=== PATIENT | female | born 1935 | race African-American/Black ===

== ENCOUNTER 2018-07-30 16:53 | Inpatient (IN) ==
--- NOTE | 2018-07-30 17:53 | Emergency Department Note ---
Disposition Clinical Impression: Liver mass, Hyponatremia, Hypokalemia Pneumonia Qualifiers: Pneumonia type: due to unspecified organism Laterality: unspecified laterality Lung location: unspecified part of lung Qualified Code(s): J18.9 - Pneumonia, unspecified organism UTI (urinary tract infection) Qualifiers: Urinary tract infection type: acute cystitis Hematuria presence: without hematuria Qualified Code(s): N30.00 - Acute cystitis without hematuria Disposition: Admitted As Inpatient Condition: Fair Time of Disposition: 20:35 Abdominal Pain HPI - General Chief Complaint: ED Abdominal Pain Stated Complaint: abd pain Time Seen by Provider: 07/30/18 17:06 Source: patient Mode of arrival: wheelchair Limitations: no limitations Nursing Notes Reviewed: Yes Vital Signs Reviewed: Yes - History of Present Illness HPI Narrative: Patient is an 82-year-old female presenting with abdominal pain. Patient states that the past few months she has been having abdominal pain with associated nausea and vomiting with intermittent diarrhea episodes. No hematochezia, hematemesis or melena. She has had chills without fever. She describes the abdominal pain to be in the left lower quadrant, with cramping sensation. No urinary symptoms. No exacerbating or alleviating factors. Patient was seen at her primary care provider's office earlier today, he was concerned and that they felt a mass in the abdomen, they then CT scheduled for later this month, however they became concerned as she continued to have diarrhea and felt as though she needed to be seen today. Pain Scale: 7 - Related Data Allergies Allergy/AdvReac Type Severity Reaction Status Date / Time No Known Allergies Allergy Verified 07/30/18 21:17 All systems ED: reviewed and negative except as stated. Review of Systems: As Per HPI Constitutional: Reports: chills. Denies: fever ENT ED: Denies: congestion Cardiovascular: Denies: chest pain, palpitations Respiratory: Denies: cough, dyspnea, wheezes Gastrointestinal: Reports: abdominal pain, nausea, vomiting, diarrhea. Denies: hematemesis, melena, hematochezia Genitourinary: Denies: urgency, dysuria, frequency Musculoskeletal: Denies: back pain, neck pain Integumentary: Denies: rash Neurological: Denies: headache, weakness, numbness, confusion Endocrine: Reports: fatigue Abdominal Pain PMH - Past Medical History Medical history: Reports: diabetes, hyperlipidemia, hypertension Female Surgical History: Reports: cholecystectomy, hysterectomy Psychiatric history: Reports: no psych history - Social History Smoking status: Never smoker Alcohol use: Reports: none Drug use: Reports: none Physical Exam - General Limitations: no limitations General appearance: alert, in no apparent distress - Head Head exam: atraumatic, normocephalic, normal inspection - Eye Eye exam: Present: normal appearance, PERRL, EOMI - ENT ENT exam: normal exam, normal oropharynx, mucous membranes dry - Neck Neck exam: Present: normal inspection, full ROM, trachea midline - Chest Chest inspection: Present: normal inspection, symmetric chest wall rise - Respiratory Respiratory exam: Present: other (Decreased breath sounds throughout). Absent: respiratory distress, wheezes - Cardiovascular Cardiovascular exam: Present: normal rhythm, tachycardia - Abdominal Exam Abdominal exam: Present: soft, tenderness (Tenderness throughout the left lower quadrant, with some distention and felt). Absent: guarding, rebound, rigidity - Extremities Exam Extremities exam: Present: normal inspection, full ROM. Absent: tenderness, pedal edema - Neurological Exam Neurological exam: Present: alert, oriented X3 - Psychiatric Psychiatric exam: Present: normal affect, normal mood - Skin Skin exam: Present: warm, dry, intact, normal color Course Vital Signs Temperature 97.7 F 07/30/18 16:57 Pulse Rate 118 07/30/18 16:57 Respiratory Rate 16 07/30/18 16:57 Blood Pressure 119/77 07/30/18 16:57 O2 Sat by Pulse Oximetry 95 07/30/18 16:57 Temperature 97.7 F 07/30/18 16:57 Pulse Rate 96 07/30/18 20:01 Respiratory Rate 18 07/30/18 21:51 Blood Pressure 147/76 07/30/18 21:51 O2 Sat by Pulse Oximetry 98 07/30/18 20:01 Oxygen Delivery Oxygen Delivery Room Air Abdominal Pain - MDM Narrative Medical decision making narrative: Patient is an 82-year-old female presenting with abdominal pain. This is been ongoing for the past 2 months with vomiting and diarrhea. Patient was seen by primary care provider earlier today with concern for abdominal mass, was sent to the ER for further evaluation. On arrival, patient is in no acute distress, she is alert and oriented 3, decreased breath sounds throughout with tenderness to the left lower quadrant. Patient is cachectic and thin in general appearance. CBC reveals leukocytosis at 16 with hemoglobin of 10.4, with a left shift of 14, patient is found to be hyponatremic at 1:30, hypokalemic at 2.8 with a serum creatinine of 1.36, increased from baseline. Patient also has elevation of total bilirubin, alkaline phosphatase and lipase. Lactic acid is within normal limits. AST and LFT are within normal limits. Albumin is low at 2.9. Urinalysis also was suggestive of urinary tract infection, patient was started on Rocephin as well as a urine culture was ordered. Chest x-ray was performed which showed suggestion of pneumonia in the left lobe, patient was started on azithromycin. As well as Rocephin which was artery started for urinary tract infection. Blood cultures were also ordered. CT which shows significant hepatic mass and lesions most likely represented of malignancy along with multiple low densities within the pancreas, requiring further evaluation, as well as possible enteritis or adjacent ascites with prominence of small bowel wall. There is also note of free fluid in the pelvis with left sided pleural effusion and small amount of pericardial fluid. My attending did have a discussion with the patient and her family in the room, they are in understanding and agreement with CT findings as well as laboratory work at this time. They agree with disposition of admission for further evaluation and recommendations. Patient this point in time is stable. Has been accepted by the hospitalist physician, Dr. Bermudez. - Medical Records Medical records reviewed: Yes I reviewed the patient's medical records. - Lab Data Lab results reviewed: Yes I reviewed the patient's lab results. Result diagrams: 07/30/18 18:15 07/30/18 18:15 Lab Results 07/30/18 07/30/18 07/30/18 Range/Units 18:15 18:15 18:15 WBC 16.3 H (4.3-11.1) K/mcL RBC 3.99 (3.82-4.97) M/mcL Hgb 10.4 L (11.5-15.4) g/dL Hct 32.2 L (35.3-44.9) % MCV 80.7 L (83.0-100.0) fL MCH 26.1 L (28.0-33.3) pg MCHC 32.3 (31.6-35.5) g/dL RDW 16.0 H (11.5-14.5) % Plt Count 206 (140-400) K/mcL MPV 12.7 H (9.4-12.4) fL Immature Gran % 1.3 (0-4) % Seg Neutrophils % 89.4 % Lymphocytes % 4.5 % Monocytes % 4.4 % Eosinophils % 0.3 % Basophils % 0.1 % Neutrophils # 14.6 H (1.6-8.9) K/mcL Lymphocytes # 0.7 (0.6-4.6) K/mcL Monocytes # 0.7 (0.0-1.3) K/mcL Eosinophils # 0.1 (0.0-0.6) K/mcL Basophils # 0.0 (0.0-0.2) K/mcL Sodium 130 L (136-145) mEq/L Potassium 2.8 L (3.5-5.1) mEq/L Chloride 85 L (98-107) mEq/L Carbon Dioxide 34 H (23-29) mEq/L BUN 46 H (8-23) mg/dL Creatinine 1.36 H (0.60-1.20) mg/dL Est GFR ( Amer) 45 L (> 60) Est GFR (Non-Af Amer) 37 L (> 60) BUN/Creatinine Ratio 34 H (6-26) Glucose 460 H (70-105) mg/dL Calculated Osmolality 302 H (280-300) Lactic Acid 1.9 (0.5-2.2) mmol/L Calcium 8.4 L (8.6-10.3) mg/dL Total Bilirubin 1.4 H (0.3-1.0) mg/dL Direct Bilirubin 0.5 H (0.0-0.2) mg/dL Indirect Bilirubin 0.9 (0.0-1.2) mg/dL AST 28 (13-39) Units/L ALT 14 (7-52) Units/L Alkaline Phosphatase 198 H (34-104) Units/L Serum Total Protein 6.2 L (6.4-8.9) g/dL Albumin 2.9 L (3.5-5.7) g/dL Globulin 3.3 (2.4-3.5) g/dL Albumin/Globulin Ratio 0.9 L (1.1-2.2) Lipase 166 H (11-82) Units/L Ur Specimen Adequacy Urine Color (Yellow) Urine Clarity (Clear) Urine pH (5.0-8.0) pH Units Ur Specific [place] (1.010-1.025) Urine Protein (Neg-Trace) mg/dL Urine Glucose (UA) (Normal) mg/dL Urine Ketones (Negative) mg/dL Urine Blood (Negative) Urine Nitrite (Negative) Urine Bilirubin (Negative) Urine Urobilinogen (Normal) mg/dL Ur Leukocyte Esterase (Negative) Urine Microscopic RBC (0-3) per hpf Urine Microscopic WBC (0-3) per hpf Ur Squamous Epith Cells (None-Few) per lpf Urine Bacteria (None-Few) per hpf Urine Yeast (None Seen) per hpf 07/30/18 Range/Units 18:49 WBC (4.3-11.1) K/mcL RBC (3.82-4.97) M/mcL Hgb (11.5-15.4) g/dL Hct (35.3-44.9) % MCV (83.0-100.0) fL MCH (28.0-33.3) pg MCHC (31.6-35.5) g/dL RDW (11.5-14.5) % Plt Count (140-400) K/mcL MPV (9.4-12.4) fL Immature Gran % (0-4) % Seg Neutrophils % % Lymphocytes % % Monocytes % % Eosinophils % % Basophils % % Neutrophils # (1.6-8.9) K/mcL Lymphocytes # (0.6-4.6) K/mcL Monocytes # (0.0-1.3) K/mcL Eosinophils # (0.0-0.6) K/mcL Basophils # (0.0-0.2) K/mcL Sodium (136-145) mEq/L Potassium (3.5-5.1) mEq/L Chloride (98-107) mEq/L Carbon Dioxide (23-29) mEq/L BUN (8-23) mg/dL Creatinine (0.60-1.20) mg/dL Est GFR ( Amer) (> 60) Est GFR (Non-Af Amer) (> 60) BUN/Creatinine Ratio (6-26) Glucose (70-105) mg/dL Calculated Osmolality (280-300) Lactic Acid (0.5-2.2) mmol/L Calcium (8.6-10.3) mg/dL Total Bilirubin (0.3-1.0) mg/dL Direct Bilirubin (0.0-0.2) mg/dL Indirect Bilirubin (0.0-1.2) mg/dL AST (13-39) Units/L ALT (7-52) Units/L Alkaline Phosphatase (34-104) Units/L Serum Total Protein (6.4-8.9) g/dL Albumin (3.5-5.7) g/dL Globulin (2.4-3.5) g/dL Albumin/Globulin Ratio (1.1-2.2) Lipase (11-82) Units/L Ur Specimen Adequacy See below A Urine Color Dark Yellow (Yellow) Urine Clarity Turbid A (Clear) Urine pH 5.0 (5.0-8.0) pH Units Ur Specific [place] 1.024 (1.010-1.025) Urine Protein 100 H (Neg-Trace) mg/dL Urine Glucose (UA) >=1000 H (Normal) mg/dL Urine Ketones Negative (Negative) mg/dL Urine Blood Large H (Negative) Urine Nitrite Negative (Negative) Urine Bilirubin Moderate H (Negative) Urine Urobilinogen 2.0 H (Normal) mg/dL Ur Leukocyte Esterase Large H (Negative) Urine Microscopic RBC 5-15 H (0-3) per hpf Urine Microscopic WBC TNTC H (0-3) per hpf Ur Squamous Epith Cells Moderate H (None-Few) per lpf Urine Bacteria Many H (None-Few) per hpf Urine Yeast Few H (None Seen) per hpf - Radiology Data Radiology results reviewed: Yes I reviewed the patient's radiology results. Abdomen/Pelvis CT 07/30/18 18:37 IMPRESSION: 1. Multiple ill-defined low-density lesions throughout the liver with slight nodularity of the contour of the liver. Findings could represent hepatic metastatic disease or multifocal HCC within a cirrhotic liver. Diffuse abdominal and pelvic ascites. 2. Multiple low-density lesions throughout the pancreatic body and tail with the largest measuring up to 1.3 cm in the pancreatic tail. Further evaluation/workup with MR abdomen/MRCP is recommended. Differential considerations include IPMN. A 1.1 cm peripancreatic lymph node. Fat stranding in the omental fat could be related to developing/early peritoneal carcinomatosis. 3. Mild nonspecific prominence of the wall of the small bowel loops could be related to enteritis or adjacent ascites. Prominence of the colonic kelley could be related to incomplete distention. Colitis not excluded. 4. Moderate free fluid in the pelvis. Prior hysterectomy. 5. There is 7 mm anterolisthesis of L4 on L5. There is 1 mm retrolisthesis of L2 on L3. 6. Small left-sided pleural effusion. Small amount of pericardial fluid. 7. Coronary artery disease. Critical results were called by Dr. Jimmy Ramon MD to Fred Ayala on 07/30/2018 at 19:38. D/ / 07/30/2018 19:51:29 Jimmy Ramon MD / marti Interpreting Provider: Jimmy Ramon MD Chest X-Ray 07/30/18 18:37 IMPRESSION: Mild left retrocardiac airspace disease suspicious for pneumonia. There are a few bands of acute versus chronic bibasilar atelectasis. D/ / Judson Rothman MD / Judson Rothman MD Interpreting Provider: Judson Rothman MD - EKG Data EKG attestation: Yes I reviewed and interpreted this EKG. EKG results narrative: EKG performed at 1859 ventricular rate of 99, regular rhythm, normal axis, LVH is noted, no ST segment elevation, or depression, nonspecific T-wave changes. Attestation Statement - Attestation Attestation: Resident Attestation: I examined this patient and my medical decision making was reviewed with the Resident Physician. I agree with the documented findings, disposition and treatment plan as described except to the extent set forth below. We independently had [id number] contact with the patient. Patient with overall two-month decline complaining of abdominal pain with associated nausea. Initial blood work and testing revealed hypokalemia as well as concern for cancer. Overall the patient is resting in bed comfortably, no acute distress, mild abdominal distention with generalized tenderness without focal tenderness. Patient CT scan concerning for cancer. At this time the patient has not been doing well at home. Patient will be admitted for further management.
[2018-07-30 18:29] LABS: Basophils % 0.1 %; Eosinophils # 0.1 K/mcL (0.0-0.6); Eosinophils % 0.3 %; Hematocrit 32.2 % (35.3-44.9); Hemoglobin 10.4 g/dL (11.5-15.4); Immature Granulocytes % 1.3 % (0-4); Lymphocytes # 0.7 K/mcL (0.6-4.6); Lymphocytes % 4.5 %; Mean Corpuscular HGB Conc 32.3 g/dL (31.6-35.5); Mean Corpuscular Hemoglobin 26.1 pg (28.0-33.3); Mean Corpuscular Volume 80.7 fL (83.0-100.0); Mean Platelet Volume 12.7 fL (9.4-12.4); Monocytes # 0.7 K/mcL (0.0-1.3); Monocytes % 4.4 %; Neutrophils # 14.6 K/mcL (1.6-8.9); Platelet Count 206 K/mcL (140-400); Red Blood Count 3.99 M/mcL (3.82-4.97); Segmented Neutrophils % 89.4 %
[2018-07-30] MEDS ORDERED: 0.9 % Sodium Chloride 500 ML IVC ONE (18:37)
[2018-07-30] MEDS ORDERED: Isovue-370 500 ML BOTTLE IVP ONE (18:37)
[2018-07-30] MEDS ORDERED: Ondansetron 4 MG/2 ML VIAL IVP ONE (18:38)
[2018-07-30 18:46] LABS: Albumin 2.9 g/dL (3.5-5.7); Albumin/Globulin Ratio 0.9 (1.1-2.2); Bilirubin,Direct 0.5 mg/dL (0.0-0.2); Bilirubin,Indirect 0.9 mg/dL (0.0-1.2); Bilirubin,Total 1.4 mg/dL (0.3-1.0); Calcium 8.4 mg/dL (8.6-10.3); Globulin 3.3 g/dL (2.4-3.5); Potassium 2.8 mEq/L (3.5-5.1); Total Protein 6.2 g/dL (6.4-8.9)
[2018-07-30 19:11] LABS: Bilirubin,Urine Moderate (Negative); Blood,Urine Large (Negative); Clarity,Urine Turbid (Clear); Color,Urine Dark Yellow (Yellow); Glucose,Urine (UA) >=1000 mg/dL (Normal); Ketones,Urine Negative (Negative); Leukocyte Esterase,Urine Large (Negative); Nitrite,Urine Negative (Negative); Protein,Urine 100 mg/dL (Neg-Trace); Specific Gravity,Urine 1.024 (1.010-1.025)
[2018-07-30 19:14] LABS: Bacteria,Urine Many per hpf (None-Few); WBC,Urine TNTC per hpf (0-3)
[2018-07-30 19:24] LABS: Squamous Epithelial Cell,Urine Moderate per lpf (None-Few); Yeast,Urine Few per hpf (None Seen)
[2018-07-30] MEDS ORDERED: *HR* OxyCODONE Immed Rel 5 MG TABLET PO STA (20:10)
[2018-07-30] MEDS ORDERED: Azithromycin 500 MG in D5% in Water 250 ML IVPB ONE (20:33)
[2018-07-30] MEDS ORDERED: cefTRIAXone 1,000 MG in Water for inj. (sterile) 20 ML 10 ML IVP ONE (20:33)
[2018-07-31] MEDS ORDERED: D5% in Water 1,000 ML IVC PRN (02:35)
[2018-07-31] MEDS ORDERED: Ondansetron 4 MG/2 ML VIAL IVP PRN (02:35)
[2018-07-31] MEDS ORDERED: Acetaminophen 325 MG TABLET PO PRN (02:35)
[2018-07-31] MEDS ORDERED: Naloxone 0.4 MG/ML INJ IVP PRN (02:35)
[2018-07-31] MEDS ORDERED: Dextrose Gel 15 GM/37.5 ML TUBE PO PRN ×2 (02:35)
[2018-07-31] MEDS ORDERED: *HR* Dextrose 50 % in Water (Syg) 50 ML SYRINGE IVP PRN (02:35)
[2018-07-31] MEDS: 0.9 % Sodium Chloride w KCl 20 MEQ/1,000 ML MLS IVC SCH ×2 (03:15→11:17)
--- NOTE | 2018-07-31 04:31 | Internal Med History&Physical ---
Date of Encounter: 07/31/18 Time of Encounter: 02:25 Internal Medicine - H&P: HPI Chief complaint: abdominal pain, weight loss Admitted From: Emergency Dept Plans for Post Hospital Care: Home History of present illness: Ms. Granado is a 82 year old female who presents to the ER [facility] with complaints of abdominal pain, nausea, vomiting, unintentional weight loss, fatigue, and dehydration. Symptoms started about 2-3 months ago and have progressively worsened. She saw her PCP yesterday who ordered an outpatient abd ominal CT scan. However, because of worsening symptoms, patient came to ER [facility] where she was seen and evaluated. She had imaging of her abdomen and pelvis which revealed findings concerning for possible metastatic disease to liver versus hepatocellular carcinoma versus malignancy arising from the pancreas. She was subsequently admitted to hospitalist service for further workup and care. She also had significant metabolic derangements in her chemistry panel. Upon my assessment of the patient, patient is resting in bed comfortably. She appears cachectic but with a protuberant abdomen. She confirms the above history. She denies any bloody stools, black stools, or hematemesis. She has had some cough, shortness of breath, and low-grade fevers lately as well. Appetite has been very poor. She also has had minimal fluid intake. She admits to having had unintentional weight loss over last few months. Past Med Surg Social Fam HX - Past Medical History Attestation: Yes The following information was validated with the patient. Source: patient, old records reviewed Medical history: diabetes, hyperlipidemia, hypertension Additional medical history: multiple sclerosis Psychiatric history: no psych history - Past Surgical History Surgical History: cholecystectomy, hysterectomy Additional surgical history: lump removed from right breast - Social History Smoking Status: Never smoker Alcohol use: none Drug use: none Current living situation: Home Activity Level: Independent ambulation Recent Out of Country Travel Within the Last 8 Weeks: No - Family History Mother Living Status: Hx Family GI Disorders: No Father Living Status: Hx Family GI Disorders: No Internal Medicine - H&P: Meds Allergy/AdvReac Type Severity Reaction Status Date / Time No Known Allergies Allergy Verified 07/30/18 21:17 - Constitutional Constitutional: chills, fatigue, fever(s), weakness, weight loss, no night sweats - EENT Eyes: no blurry vision, no change in vision Ears: no ear pain, no tinnitus Nose, mouth and throat: no nasal congestion, no sinus pressure, no sore throat - Cardiovascular Cardiovascular ROS IM: dyspnea, no chest pain, no orthopnea, no syncope - Respiratory Respiratory: cough, dyspnea, chest congestion, change in phlegm color, no hemoptysis - Gastrointestinal Gastrointestinal: abdominal pain, bloating, cramping, early satiety, nausea, vomiting, no hematemesis, no hematochezia, no melena - Genitourinary Genitourinary: no dysuria, no flank pain, no hematuria - Musculoskeletal Musculoskeletal ROS IM: arthralgias, back pain, no muscle cramps, no myalgias - Integumentary Integumentary IM: no rash, no jaundice - Neurological Neurological ROS: no disequilibrium, no dizziness, no focal weakness, no frequent falls, no headache(s) - Psychiatric Psychiatric: no anxiety, no depression - Endocrine Endocrine IM: fatigue, no polydipsia, no polyphagia, no polyuria - Allergic/Immunologic Allergic/Immunologic: GI upset with certain foods - Constitutional Vitals: Temp Pulse Resp BP Pulse Ox 97.5 F L 105 14 120/75 98 07/31/18 03:11 07/31/18 03:11 07/31/18 03:11 07/31/18 03:11 07/31/18 03:11 General appearance: Present: cachectic, cooperative, A&O X 3, pleasant, answers questions appropriately Exam: see below - Head Head exam: Present: atraumatic, normal inspection - Eye Eye exam: Present: EOMI, PERRL. Absent: scleral icterus Pupils: Present: normal accommodation - ENT ENT exam: Present: mucous membranes dry, normal exam, normal oropharynx Additional comments: + temporal wasting - Neck Neck exam general surgery: Present: full ROM, supple, trachea midline. Absent: lymphadenopathy, tenderness, nuchal rigidity, thyromegaly - Respiratory Respiratory exam: Present: decreased breath sounds (both bases, R>L), rales, rhonchi, tachypnea. Absent: chest wall tenderness, respiratory distress, wheezes - Cardiovascular Cardiovascular exam: Present: distant heart sounds, +S1, +S2. Absent: diastolic murmur, systolic murmur - GI/Abdominal GI/Abdominal exam: Present: mass (mid-epigastrium/RUQ), soft, tenderness, no peritoneal signs. Absent: guarding, rebound - Extremities Exam Extremities exam: Present: full ROM. Absent: calf tenderness, pedal edema, tenderness, warm - Back Exam Back exam: Absent: CVA tenderness (L), CVA tenderness (R) - Neurological Exam Neurological exam: Present: alert, CN II-XII intact, oriented X3, no focal deficits, strengths equal and symetr throughout - Psychiatric Psychiatric exam: Present: normal affect, normal mood - Skin Skin exam: Present: dry, intact, warm Internal Med - H&P Results - Labs CBC & Chem 7: 07/30/18 18:15 07/30/18 18:15 Labs: Short CBC 07/30/18 Range/Units 18:15 WBC 16.3 H (4.3-11.1) K/mcL Hgb 10.4 L (11.5-15.4) g/dL Hct 32.2 L (35.3-44.9) % Plt Count 206 (140-400) K/mcL Neutrophils # 14.6 H (1.6-8.9) K/mcL BMP 07/30/18 18:15 Sodium 130 L Potassium 2.8 L Chloride 85 L Carbon Dioxide 34 H BUN 46 H Creatinine 1.36 H Glucose 460 H Calcium 8.4 L Liver Function 07/30/18 Range/Units 18:15 Total Bilirubin 1.4 H (0.3-1.0) mg/dL Direct Bilirubin 0.5 H (0.0-0.2) mg/dL AST 28 (13-39) Units/L ALT 14 (7-52) Units/L Alkaline Phosphatase 198 H (34-104) Units/L Albumin 2.9 L (3.5-5.7) g/dL Urine 07/30/18 Range/Units 18:49 Urine Color Dark Yellow (Yellow) Urine Clarity Turbid A (Clear) Urine pH 5.0 (5.0-8.0) pH Units Ur Specific [place] 1.024 (1.010-1.025) Urine Protein 100 H (Neg-Trace) mg/dL Urine Glucose (UA) >=1000 H (Normal) mg/dL - Impressions ITS Impressions Abdomen/Pelvis CT 07/30/18 18:37 IMPRESSION: 1. Multiple ill-defined low-density lesions throughout the liver with slight nodularity of the contour of the liver. Findings could represent hepatic metastatic disease or multifocal HCC within a cirrhotic liver. Diffuse abdominal and pelvic ascites. 2. Multiple low-density lesions throughout the pancreatic body and tail with the largest measuring up to 1.3 cm in the pancreatic tail. Further evaluation/workup with MR abdomen/MRCP is recommended. Differential considerations include IPMN. A 1.1 cm peripancreatic lymph node. Fat stranding in the omental fat could be related to developing/early peritoneal carcinomatosis. 3. Mild nonspecific prominence of the wall of the small bowel loops could be related to enteritis or adjacent ascites. Prominence of the colonic kelley could be related to incomplete distention. Colitis not excluded. 4. Moderate free fluid in the pelvis. Prior hysterectomy. 5. There is 7 mm anterolisthesis of L4 on L5. There is 1 mm retrolisthesis of L2 on L3. 6. Small left-sided pleural effusion. Small amount of pericardial fluid. 7. Coronary artery disease. Critical results were called by Dr. Jimmy Ramon MD to Rolanmorenita Ayala on 07/30/2018 at 19:38. D/ / 07/30/2018 19:51:29 Jimmy Ramon MD / marti Interpreting Provider: Jimmy Ramon MD Chest X-Ray 07/30/18 18:37 IMPRESSION: Mild left retrocardiac airspace disease suspicious for pneumonia. There are a few bands of acute versus chronic bibasilar atelectasis. D/ / Judson Rothman MD / Judson Rothman MD Interpreting Provider: Judson Rothman MD - Diagnostic Studies Chest x-ray Status: image reviewed by me (suspect LLL infiltrate) - Assessment and Plan (1) Liver mass Current Visit: Yes Status: Acute Assessment and plan: 1. Will order MRI abdomen. 2. Consult GI and HEM/ONC for assistance in work-up and management. (2) Pneumonia Current Visit: Yes Status: Acute Assessment and plan: 1. Blood cultures ordered in ER. 2. Will try to collect sputum cultures. 3. Will treat with Rocephin and Zithromax. 4. Oxygen and aerosols as needed. Qualifiers: Pneumonia type: due to unspecified organism Laterality: unspecified laterality Lung location: lower lobe of lung Qualified Code(s): J18.1 - Lobar pneumonia, unspecified organism (3) UTI (urinary tract infection) Current Visit: Yes Status: Acute Assessment and plan: 1. Urine culture obtained in ER. 2. Continue IV antibiotics as above. 3. Follow urine culture. 4. IVF hydration. Qualifiers: Urinary tract infection type: acute cystitis Hematuria presence: without hematuria Qualified Code(s): N30.00 - Acute cystitis without hematuria (4) Type 2 diabetes mellitus Current Visit: Yes Status: Chronic Assessment and plan: 1. Will place on SSI and monitor glucose closely. 2. Hold oral home meds. Qualifiers: Diabetes mellitus intermediate insulin use: without intermediate use Diabetes mellitus complication status: without complication Qualified Code(s): E11.9 - Type 2 diabetes mellitus without complications (5) DVT prophylaxis Current Visit: Yes Status: Acute Assessment and plan: 1. Heparin SQ.
[2018-07-31 04:33] LABS: Basophils % 0.2 %; Eosinophils # 0.4 K/mcL (0.0-0.6); Eosinophils % 1.9 %; Hematocrit 35.3 % (35.3-44.9); Immature Granulocytes % 1.2 % (0-4); Lymphocytes # 1.2 K/mcL (0.6-4.6); Lymphocytes % 6.4 %; Mean Corpuscular HGB Conc 31.2 g/dL (31.6-35.5); Mean Corpuscular Hemoglobin 25.6 pg (28.0-33.3); Mean Corpuscular Volume 82.1 fL (83.0-100.0); Mean Platelet Volume 12.8 fL (9.4-12.4); Monocytes # 0.7 K/mcL (0.0-1.3); Monocytes % 3.6 %; Neutrophils # 16.3 K/mcL (1.6-8.9); Nucleated Red Blood Cells 0.2 /100 WBC (0); Platelet Count 180 K/mcL (140-400); Red Cell Distribution Width 16.3 % (11.5-14.5); Segmented Neutrophils % 86.7 %
[2018-07-31] MEDS: Insulin LISPRO 300 UNITS/3 ML VIAL SQ SCH ×3 (06:03→17:57)
[2018-07-31] MEDS: *HR* Heparin 5,000 UNIT/ML VIAL SQ SCH ×2 (06:03→17:58)
[2018-07-31 06:27] LABS: INR 1.1; Prothrombin Time 12.4 Seconds (9.4-12.1)
[2018-07-31 06:30] LABS: Activated Partial Thrombo Time 28.1 Seconds (26.0-36.0)
[2018-07-31 06:51] LABS: Albumin 2.8 g/dL (3.5-5.7); Albumin/Globulin Ratio 0.8 (1.1-2.2); Bilirubin,Total 1.2 mg/dL (0.3-1.0); Calcium 8.2 mg/dL (8.6-10.3); Chol/HDL Ratio 3.6 (0-4.9); Globulin 3.4 g/dL (2.4-3.5); Magnesium 1.8 mg/dL (1.6-2.6); Potassium 3.6 mEq/L (3.5-5.1); Total Protein 6.2 g/dL (6.4-8.9)
[2018-07-31 07:27] LABS: Hepatitis B Surface Antigen Nonreactive (Nonreactive)
[2018-07-31 07:56] LABS: Hepatitis A Antibody IgM Nonreactive (Nonreactive); Hepatitis B Core IgM Nonreactive (Nonreactive); Hepatitis C Virus Antibody Nonreactive (Nonreactive)
[2018-07-31] MEDS: cefTRIAXone 2,000 MG in Water for inj. (sterile) 20 ML 20 ML IVP SCH (08:12)
--- NOTE | 2018-07-31 12:10 | Oncology Inp Consult Note ---
Date of Encounter: 07/31/18 Time of Encounter: 11:00 Assessment and Plan (1) Liver mass Status: Acute Assessment and plan: Ms. Granado presents with abdominal pain, nausea, vomiting CT imaging showing extensive replacement of her liver by malignancy. In addition, she is ascites. There may also be peritoneal carcinomatosis. She states she thinks she had a colonoscopy in the recent past. This represents either a primary liver malignancy were a possible metastatic process involving the liver. The patient may entertain therapy. However, given her age and frailty, our options will be limited. There is no family to discuss this with at this time. For now, I do recommend repeat with CT guided biopsy of the liver. This will hopefully be performed tomorrow. I canceled MRI of the liver as it will not change our approach to these findings. We will need tissue confirmation for malignancy as well as for possible next generation sequencing for non-chemotherapeutic options. CT of the chest has been ordered to complete staging. If her headache persists, would consider MRI imaging of the brain. AFP and CA 199 has been ordered. Further decisions pending biopsy as well as discussion with the patient and family regarding goals of care. We will consider palliative care consultation over the next day or so. - Data of Consult Patient: new to practice Requesting Physician: Estella Bentley Primary Care Provider: Reece Kruger MD - Consult Narrative Reason for consult: New liver mass History of present illness: Ms. Granado is a 82-year-old woman who presents with a three-month history of nausea, vomiting, abdominal pain and an approximate 20 pound weight loss over the past 3 months time. Secondary to her symptoms, her primary care physician ordered CT scan of the abdomen and pelvis 07/30/2017 revealed multiple ill- defined low-density lesions throughout the liver as well as a nodularity to the contralateral liver concerning for cirrhosis. Diffuse abdominal pelvic ascites was identified. Multiple low-density lesions at the pancreatic body and tail with the largest measuring 1.3 cm. Presence of omental fat related to developing/early peritoneal carcinomatosis. There is mild nonspecific prominence of wall of the small bowel loops related to enteritis or ascites. Moderate free fluid was in the pelvis. Small left-sided pleural effusion as well as small pericardial effusion were present. Currently, she complains of abdominal pain that spoke in the right upper quadrant radiates to her left upper quadrant as well. She has lost 20-30 pounds in weight 3 months. She just has no appetite. She denies any bone aches or pains but has had a recurrent headache. No fever, chills or symptoms of infection. She does feel cold since she lost all this weight. She states she lives with her "mother". She states her "mom and dad" were with her this morn ing. She does not answer all questions appropriately but is able to answer the majority of questions I requested. She does state that if this is cancer, she wanted to think about treatment. However, I do not think she grasps the gravity of the situation. There is no family in the room during this conversation. She thinks she had a colonoscopy "in the last year", although I see no evidence of colonoscopy in our system. Past Med Surg Social Fam HX - Past Medical History Medical history: diabetes, hyperlipidemia, hypertension Additional medical history: multiple sclerosis Psychiatric history: no psych history - Past Surgical History Surgical History: cholecystectomy, hysterectomy Additional surgical history: lump removed from right breast - Social History Smoking Status: Never smoker Alcohol use: none Drug use: none - Family History Mother Living Status: Hx Family GI Disorders: No Father Living Status: Hx Family GI Disorders: No Medications and Allergies Aspirin [Lo-Dose Aspirin EC] 81 mg PO DAILY 07/31/18 [History] Biotin 1,000 mcg PO DAILY 07/31/18 [History] Cholecalciferol (D-3) [Vitamin D] 1 cap PO DAILY 07/31/18 [History] Dicyclomine [Bentyl] 10 mg PO TID PRN 07/31/18 [History] Diltiazem HCl 180 mg PO DAILY 07/31/18 [History] Furosemide [Lasix] 10 mg PO HS 07/31/18 [History] Furosemide [Lasix] 20 mg PO DAILY 07/31/18 [History] Glimepiride [Amaryl] 2 mg PO BID 07/31/18 [History] Glucosamine Sulfate Dipot Chlr [Glucosamine] 1.5 tab PO DAILY 07/31/18 [History] Isosorbide MONOnitrate [Isosorbide Mononitrate ER] 30 mg PO DAILY 07/31/18 [History] Lactobacillus Acidophilus [Acidophilus] 1 each PO DAILY 07/31/18 [History] Lisinopril [Zestril] 20 mg PO DAILY 07/31/18 [History] Metformin HCl [Fortamet] 1,500 mg PO HS 07/31/18 [History] Metoprolol Tartrate [Lopressor] 50 mg PO BIDWM 07/31/18 [History] Commerce-3/Dha/Epa/Fish Oil [Commerce 3 500 Softgel] 2 each PO DAILY 07/31/18 [History] Omeprazole [PriLOSEC] 20 mg PO DAILY PRN 07/31/18 [History] Ondansetron ODT [Zofran ODT] 4 mg SL Q6HR PRN 07/31/18 [History] Oxazepam 30 mg PO TID PRN 07/31/18 [History] Oxybutynin Chloride [Ditropan Xl] 10 mg PO DAILY 07/31/18 [History] Potassium Chloride [Klor-Con 10] 2 tab PO BID 07/31/18 [History] Sertraline [Zoloft] 50 mg PO DAILY 07/31/18 [History] Simvastatin [Zocor] 10 mg PO DAILY 07/31/18 [History] Allergy/AdvReac Type Severity Reaction Status Date / Time No Known Allergies Allergy Verified 07/30/18 21:17 Constitutional: Present: fatigue, headache(s), lethargy, weight loss Eyes: Present: as per HPI Ears: Present: decreased hearing, other Nose, mouth and throat: Present: as per HPI Cardiovascular: Present: as per HPI Respiratory: Present: dyspnea on exertion Gastrointestinal: Present: change in bowel habits, early satiety, loose stools, nausea Genitourinary: Present: as per HPI Menstruation: as per HPI Musculoskeletal: Present: muscle weakness Integumentary: Present: as per HPI Psychiatric: Present: as per HPI Oncology - Exam - Constitutional General appearance: cooperative, no acute distress, thin - Head Head exam: Present: atraumatic, normal inspection, normocephalic - Eye Eye exam: Present: normal appearance, conjuntiva pink, sclera anicteric - ENT ENT exam: Present: mucous membranes moist, normal exam, normal oropharynx - Neck Neck exam: Present: full ROM, normal inspection - Respiratory Respiratory exam: Present: CTAB - Cardiovascular Cardiovascular exam: Present: RRR, systolic murmur - GI/Abdominal GI/Abdominal exam: Present: distended, organomegaly, soft, tenderness - Extremities Exam Extremities exam: Present: normal inspection - Back Exam Back exam: Present: normal inspection - Neurological Exam Neurological exam: Present: alert, CN II-XII intact, no focal deficits Oncology Inpatient Results Labs: Laboratory Results - last 24 hr 07/30/18 07/30/18 07/30/18 18:15 18:15 18:15 WBC 16.3 H RBC 3.99 Hgb 10.4 L Hct 32.2 L MCV 80.7 L MCH 26.1 L MCHC 32.3 RDW 16.0 H Plt Count 206 MPV 12.7 H Immature Gran % 1.3 Seg Neutrophils % 89.4 Lymphocytes % 4.5 Monocytes % 4.4 Eosinophils % 0.3 Basophils % 0.1 Neutrophils # 14.6 H Lymphocytes # 0.7 Monocytes # 0.7 Eosinophils # 0.1 Basophils # 0.0 Nucleated RBCs/100 WBC PT INR APTT Sodium 130 L Potassium 2.8 L Chloride 85 L Carbon Dioxide 34 H BUN 46 H Creatinine 1.36 H Est GFR ( Amer) 45 L Est GFR (Non-Af Amer) 37 L BUN/Creatinine Ratio 34 H Glucose 460 H POC Glucose Calculated Osmolality 302 H Lactic Acid 1.9 Calcium 8.4 L Magnesium Total Bilirubin 1.4 H Direct Bilirubin 0.5 H Indirect Bilirubin 0.9 AST 28 ALT 14 Alkaline Phosphatase 198 H Serum Total Protein 6.2 L Albumin 2.9 L Globulin 3.3 Albumin/Globulin Ratio 0.9 L Triglycerides Cholesterol LDL Cholesterol, Calc VLDL Cholesterol, Calc HDL Cholesterol Cholesterol/HDL Ratio Lipase 166 H Ur Specimen Adequacy Urine Color Urine Clarity Urine pH Ur Specific [place] Urine Protein Urine Glucose (UA) Urine Ketones Urine Blood Urine Nitrite Urine Bilirubin Urine Urobilinogen Ur Leukocyte Esterase Urine Microscopic RBC Urine Microscopic WBC Ur Squamous Epith Cells Urine Bacteria Urine Yeast Hepatitis A IgM Ab Hep Bs Antigen Hep B Core IgM Ab Hepatitis C Ab Screen 07/30/18 07/31/18 07/31/18 18:49 04:19 04:42 WBC 18.8 H RBC 4.30 Hgb 11.0 L Hct 35.3 MCV 82.1 L MCH 25.6 L MCHC 31.2 L RDW 16.3 H Plt Count 180 MPV 12.8 H Immature Gran % 1.2 Seg Neutrophils % 86.7 Lymphocytes % 6.4 Monocytes % 3.6 Eosinophils % 1.9 Basophils % 0.2 Neutrophils # 16.3 H Lymphocytes # 1.2 Monocytes # 0.7 Eosinophils # 0.4 Basophils # 0.0 Nucleated RBCs/100 WBC 0.2 H PT 12.4 H INR 1.1 APTT 28.1 Sodium Potassium Chloride Carbon Dioxide BUN Creatinine Est GFR ( Amer) Est GFR (Non-Af Amer) BUN/Creatinine Ratio Glucose POC Glucose Calculated Osmolality Lactic Acid Calcium Magnesium Total Bilirubin Direct Bilirubin Indirect Bilirubin AST ALT Alkaline Phosphatase Serum Total Protein Albumin Globulin Albumin/Globulin Ratio Triglycerides Cholesterol LDL Cholesterol, Calc VLDL Cholesterol, Calc HDL Cholesterol Cholesterol/HDL Ratio Lipase Ur Specimen Adequacy See below A Urine Color Dark Yellow Urine Clarity Turbid A Urine pH 5.0 Ur Specific [place] 1.024 Urine Protein 100 H Urine Glucose (UA) >=1000 H Urine Ketones Negative Urine Blood Large H Urine Nitrite Negative Urine Bilirubin Moderate H Urine Urobilinogen 2.0 H Ur Leukocyte Esterase Large H Urine Microscopic RBC 5-15 H Urine Microscopic WBC TNTC H Ur Squamous Epith Cells Moderate H Urine Bacteria Many H Urine Yeast Few H Hepatitis A IgM Ab Hep Bs Antigen Hep B Core IgM Ab Hepatitis C Ab Screen 07/31/18 07/31/18 07/31/18 04:42 05:39 05:40 WBC RBC Hgb Hct MCV MCH MCHC RDW Plt Count MPV Immature Gran % Seg Neutrophils % Lymphocytes % Monocytes % Eosinophils % Basophils % Neutrophils # Lymphocytes # Monocytes # Eosinophils # Basophils # Nucleated RBCs/100 WBC PT INR APTT Sodium 128 L Potassium 3.6 D Chloride 84 L Carbon Dioxide 33 H BUN 40 H Creatinine 1.11 Est GFR ( Amer) 57 L Est GFR (Non-Af Amer) 47 L BUN/Creatinine Ratio 36 H Glucose 324 H POC Glucose 284 H Calculated Osmolality 288 Lactic Acid Calcium 8.2 L Magnesium 1.8 Total Bilirubin 1.2 H Direct Bilirubin Indirect Bilirubin AST 32 ALT 13 Alkaline Phosphatase 205 H Serum Total Protein 6.2 L Albumin 2.8 L Globulin 3.4 Albumin/Globulin Ratio 0.8 L Triglycerides 177 H Cholesterol 182 LDL Cholesterol, Calc 96 VLDL Cholesterol, Calc 35 H HDL Cholesterol 51 Cholesterol/HDL Ratio 3.6 Lipase Ur Specimen Adequacy Urine Color Urine Clarity Urine pH Ur Specific [place] Urine Protein Urine Glucose (UA) Urine Ketones Urine Blood Urine Nitrite Urine Bilirubin Urine Urobilinogen Ur Leukocyte Esterase Urine Microscopic RBC Urine Microscopic WBC Ur Squamous Epith Cells Urine Bacteria Urine Yeast Hepatitis A IgM Ab Nonreactive Hep Bs Antigen Nonreactive Hep B Core IgM Ab Nonreactive Hepatitis C Ab Screen Nonreactive 07/31/18 09:16 WBC RBC Hgb Hct MCV MCH MCHC RDW Plt Count MPV Immature Gran % Seg Neutrophils % Lymphocytes % Monocytes % Eosinophils % Basophils % Neutrophils # Lymphocytes # Monocytes # Eosinophils # Basophils # Nucleated RBCs/100 WBC PT INR APTT Sodium 132 L Potassium Chloride Carbon Dioxide BUN Creatinine Est GFR ( Amer) Est GFR (Non-Af Amer) BUN/Creatinine Ratio Glucose POC Glucose Calculated Osmolality Lactic Acid Calcium Magnesium Total Bilirubin Direct Bilirubin Indirect Bilirubin AST ALT Alkaline Phosphatase Serum Total Protein Albumin Globulin Albumin/Globulin Ratio Triglycerides Cholesterol LDL Cholesterol, Calc VLDL Cholesterol, Calc HDL Cholesterol Cholesterol/HDL Ratio Lipase Ur Specimen Adequacy Urine Color Urine Clarity Urine pH Ur Specific [place] Urine Protein Urine Glucose (UA) Urine Ketones Urine Blood Urine Nitrite Urine Bilirubin Urine Urobilinogen Ur Leukocyte Esterase Urine Microscopic RBC Urine Microscopic WBC Ur Squamous Epith Cells Urine Bacteria Urine Yeast Hepatitis A IgM Ab Hep Bs Antigen Hep B Core IgM Ab Hepatitis C Ab Screen CT OF THE ABDOMEN AND PELVIS WITHOUT CONTRAST 07/30/2018 7:19 pm FINDINGS: Lower Chest: Small left-sided pleural effusion. Small amount of pericardial fluid. Coronary artery disease. Passive atelectasis, respiratory motion and parenchymal banding in the left lower lobe. Respiratory motion, parenchymal banding and atelectasis at the right lung base. No free intra-abdominal air. Organs: Innumerable ill-defined low-density lesions throughout the liver most likely representing hepatic metastatic disease or multifocal HCC. Underlying nodular contour of the liver could be related to cirrhosis. Perihepatic ascites. No obstructing renal calculus, hydronephrosis or hydroureter. Mild left-sided perinephric stranding. Low-density lesions in the left kidney with the largest at the anterior midpole measuring up to 1.6 cm on axial image #89 most likely representing a renal cyst. Multiple areas of low attenuation within the pancreatic body and tail with a lesion in the pancreatic tail measuring up to 8 mm on axial image #69. Additional areas of lower fluid density in the pancreatic body measuring up to 7 mm seen on axial image #87. There may be another lesion at the pancreatic tail with low-attenuation component measuring up to 1.3 cm on axial image #67. Adreniform enlargement of the left adrenal gland. Right adrenal gland grossly unremarkable. GI/Bowel: No significant dilatation of small bowel loops to suggest small bowel obstruction. Appendix not definitively visualized. Mild nonspecific prominence of the wall of small bowel loops which could be related to enteritis or adjacent ascites. Mild scattered colonic diverticulosis. Prominence of the colon could be related to incomplete distention. Colitis not entirely excluded. Pelvis: Urinary bladder is collapsed. Pelvic phleboliths. Prior hysterectomy. Moderate free fluid in the pelvis. No inguinal or pelvic sidewall lymphadenopathy identified. Peritoneum/Retroperitoneum: Enlarged peripancreatic lymph node measuring 1.1 cm in diameter on axial image 101. Atherosclerotic calcification and atheromatous plaque of the visualized abdominal aorta and branch vasculature. No retroperitoneal lymphadenopathy is evident. Psoas muscles normal in size and symmetric in appearance. Stranding in the fat of the omentum could be related to underlying peritoneal carcinomatosis. Bones/Soft Tissues: Moderate degenerative changes throughout the spine. There is 7 mm anterolisthesis of L4 on L5. There is 1 mm retrolisthesis of L2 on L3. CT/CT abd pelvis wo no iv no oral IMPRESSION: 1. Multiple ill-defined low-density lesions throughout the liver with slight nodularity of the contour of the liver. Findings could represent hepatic metastatic disease or multifocal HCC within a cirrhotic liver. Diffuse abdominal and pelvic ascites. 2. Multiple low-density lesions throughout the pancreatic body and tail with the largest measuring up to 1.3 cm in the pancreatic tail. Further evaluation/workup with MR abdomen/MRCP is recommended. Differential considerations include IPMN. A 1.1 cm peripancreatic lymph node. Fat stranding in the omental fat could be related to developing/early peritoneal carcinomatosis. 3. Mild nonspecific prominence of the wall of the small bowel loops could be related to enteritis or adjacent ascites. Prominence of the colonic kelley could be related to incomplete distention. Colitis not excluded. 4. Moderate free fluid in the pelvis. Prior hysterectomy. 5. There is 7 mm anterolisthesis of L4 on L5. There is 1 mm retrolisthesis of L2 on L3. 6. Small left-sided pleural effusion. Small amount of pericardial fluid. 7. Coronary artery disease. Consult Discharge Plan - Plan Referrals: Reece Kruger MD [Primary Care Provider] - Inpatient Charges Provider: Dr. Pedro Rothman Consult - Inpatient Medicare Only: [id number]
--- NOTE | 2018-07-31 13:27 | Internal Med Progress Note ---
<Estella Bentley - Last Filed: 07/31/18 13:34> Hospitalist Progress Note - Encounter Date of Encounter: 07/31/18 - Exam Vitals: Temp Pulse Resp BP Pulse Ox 97.8 F 109 16 103/61 94 07/31/18 10:59 07/31/18 10:59 07/31/18 10:59 07/31/18 10:59 07/31/18 10:59 - Assessment and Plan (1) Liver mass Current Visit: Yes Status: Acute (2) Pneumonia Current Visit: Yes Status: Acute (3) UTI (urinary tract infection) Current Visit: Yes Status: Acute (4) Type 2 diabetes mellitus Current Visit: Yes Status: Chronic (5) DVT prophylaxis Current Visit: Yes Status: Acute - Time Spent with Patient Total time spent is greater than 50% in coordination of care (as documented) at patient's floor/unit and/or counseling patient: Internal Medicine: Result - Labs CBC & Chem 7: 07/31/18 04:19 07/31/18 09:16 Labs: Short CBC 07/30/18 07/31/18 Range/Units 18:15 04:19 WBC 16.3 H 18.8 H (4.3-11.1) K/mcL Hgb 10.4 L 11.0 L (11.5-15.4) g/dL Hct 32.2 L 35.3 (35.3-44.9) % Plt Count 206 180 (140-400) K/mcL Neutrophils # 14.6 H 16.3 H (1.6-8.9) K/mcL BMP 07/30/18 07/31/18 07/31/18 18:15 04:42 09:16 Sodium 130 L 128 L 132 L Potassium 2.8 L 3.6 D Chloride 85 L 84 L Carbon Dioxide 34 H 33 H BUN 46 H 40 H Creatinine 1.36 H 1.11 Glucose 460 H 324 H Calcium 8.4 L 8.2 L Liver Function 07/30/18 07/31/18 Range/Units 18:15 04:42 Total Bilirubin 1.4 H 1.2 H (0.3-1.0) mg/dL Direct Bilirubin 0.5 H (0.0-0.2) mg/dL AST 28 32 (13-39) Units/L ALT 14 13 (7-52) Units/L Alkaline Phosphatase 198 H 205 H (34-104) Units/L Albumin 2.9 L 2.8 L (3.5-5.7) g/dL Urine 07/30/18 Range/Units 18:49 Urine Color Dark Yellow (Yellow) Urine Clarity Turbid A (Clear) Urine pH 5.0 (5.0-8.0) pH Units Ur Specific [place] 1.024 (1.010-1.025) Urine Protein 100 H (Neg-Trace) mg/dL Urine Glucose (UA) >=1000 H (Normal) mg/dL - ABG Interpretation ABG results: PT/INR, D-dimer PT 12.4 Seconds (9.4-12.1) H 07/31/18 04:42 - Impressions Impressions Abdomen/Pelvis CT 07/30/18 18:37 IMPRESSION: 1. Multiple ill-defined low-density lesions throughout the liver with slight nodularity of the contour of the liver. Findings could represent hepatic metastatic disease or multifocal HCC within a cirrhotic liver. Diffuse abdominal and pelvic ascites. 2. Multiple low-density lesions throughout the pancreatic body and tail with the largest measuring up to 1.3 cm in the pancreatic tail. Further evaluation/workup with MR abdomen/MRCP is recommended. Differential considerations include IPMN. A 1.1 cm peripancreatic lymph node. Fat stranding in the omental fat could be related to developing/early peritoneal carcinomatosis. 3. Mild nonspecific prominence of the wall of the small bowel loops could be related to enteritis or adjacent ascites. Prominence of the colonic kelley could be related to incomplete distention. Colitis not excluded. 4. Moderate free fluid in the pelvis. Prior hysterectomy. 5. There is 7 mm anterolisthesis of L4 on L5. There is 1 mm retrolisthesis of L2 on L3. 6. Small left-sided pleural effusion. Small amount of pericardial fluid. 7. Coronary artery disease. Critical results were called by Dr. Jimmy Ramon MD to Fred Ayala on 07/30/2018 at 19:38. D/ / 07/30/2018 19:51:29 Jimmy Ramon MD / marti Interpreting Provider: Jimmy Ramon MD Chest X-Ray 07/30/18 18:37 IMPRESSION: Mild left retrocardiac airspace disease suspicious for pneumonia. There are a few bands of acute versus chronic bibasilar atelectasis. D/ / Judson Rothman MD / Judson Rothman MD Interpreting Provider: Judson Rothman MD Consult Discharge Plan - Plan Referrals: Reece Kruger MD [Primary Care Provider] - - Attending Attestation I examined this patient and my medical decision-making was reviewed with the Resident Physician Dr Cross. I agree with the documented findings, disposition and treatment plan as described except to the extent set forth below. Ms Granado is admitted with abd pain/n/v/d suspected to be 2/2 liver/pancreas metastatic malignancy. Unclear primary source at this time. She additionally has been diagnosed with UTI and CAP awake, resting in bed, pleasant. abd pain currently well controlled. nausea comes in waves. no emesis or diarrhea this morning. denies fevers, chills, sob. no confusion or fatigue, dneies neuro deficits. says na has been low in past and she takes salt tabs at home (not in her confirmed home med rec) gen- alert, awake,appears stated age, frail cv- reg rate and rhythm, normal s1,s2, no murmurs appreciated, no le edema lungs- ctabl, no wheezing, rhonchi or crackles, normal resp effort room air abd- soft, non tender, non distended, + bs neuro- AAOx3 Abd pain/n/v/d likely 2/2 intra abdominal malignancy with mets CT scan reviewed liver lesions, pancreas lesions, possible early peritoneal carcinamatosis, bowel edema and diffuse ascites -oncology following, CT guided bx as consented by pt in am, strict i/os, no emesis or diarrhea per pt this morning CAP- azithro + rocephin UTI- rocephin, cx pending Hyponatremia, pt reporting chronic and taking salt tabs at home but confirmed med rec did not show this- appears hypovolemic hyponatremia and improvement with ivfs- slow rate of admitting IVFs, q4 hr dandre and neuro checks and will adjust fluids as needed, given her malignancy w mets may be SIADH if lung involvement further assessment and plan as noted by resident <Louie Cross - Last Filed: 07/31/18 17:56> Hospitalist Progress Note - Encounter Date of Encounter: 07/31/18 Time of Encounter: 08:00 - Subjective Interval History: patient was mehrdad dn examined this AM. Endorses no acute disstress, currently on no maintenance fluid at 125 once per hour most recent sodium is 132 and iincrease of 4 points in the last 5 hrs. Patient seen A&O 3, good mentation does not appear to be confused. - Exam Vitals: Temp Pulse Resp BP Pulse Ox 97.8 F 109 16 103/61 94 07/31/18 10:59 07/31/18 10:59 07/31/18 10:59 07/31/18 10:59 07/31/18 10:59 Exam: Gen.: Vitals noted. No acute distress. AAOx3, resting comfortably in bed. HEENT: PERRL. EOM limited in left lateral motion in both superior and inferior motions. oropharynx clear, Normocephalic, atraumatic, MMM. Neck: Supple. No adenopathy. No thyroid nodules. Cardiac: RRR, no murmur, +S1/S2, No BLE edema Pulmonary: CTA bilaterally, no wheezes, rales or rhonchi, equal chest expansion, unlabored breathing Abdomen: soft, tender on the RUQ radiating to her back, BS noted, no guarding, no palpable HSM Skin: warm and dry, no visible lesions. MSK: Muscle strength 4/5 in upper extremity , 4/ 5 in lower extremity . no joint swelling noted, gait no assessed while in bed. Non tender calf or clubbing Neuro: A&Ox3, no facial droop, cranial nerve XII intact, sensory or motor function intact reflexes 2 out of 4, cerebellar function normal Psych: Appropriate mood and behavior, AOx3 - Assessment and Plan (1) Liver mass Current Visit: Yes Status: Acute Assessment and Plan: -Patient most recent CT abdomen belly showed multiple ill-defined low-density lesions throughout the liver with slight nodularity of the contour of the liver suggestive of multifocal HCC/hepatic metastatic disease. -Patient's ALT and AST were within normal limits. She did have elevated alkaline phosphatase of 198, elevated total bilirubin of 1.4 direct bilirubin of 0.5 - on physical exam she had belly pain radiating to her back - no emesis or diarrhea noted. PLAN -AFP pending. -Oncology on board- patient agreed to CT-guided biopsy of the liver. Consulted IR this PM. -npo midnight - will consult GI tomorrow morning for any recommendations (2) Pneumonia Current Visit: Yes Status: Acute Assessment and Plan: -Patient's chest x-ray showed concerns for left atrial cardiac airspace disease suspicious for pneumonia -Blood Cultures NGTD -Cultures pending -Currently on Rocephin and Zithromax to cover for CAP. - Clinically her lung sounds clear to auscultation bilaterally with no evidence of rhonchi wheezing or rales. -Supplemental oxygen PRN (3) Hyponatremia Current Visit: Yes Status: Acute Assessment and Plan: Patient presents to the hospital with a sodium 130. Most recent sodium is 133 -likely hypovolemic hyponatremia due to poor by mouth intake for the last 3 months. -On physical exam patient does not appear to be confused, no numbness or tingling in extremities or any other neurological deficits appreciated -Currently on maintenance fluid at 125 mls/hr. Plan: -Check sodium q4h -neuro check q4h - Will reduce rate of the maintenance fluid so sodium is needed to corrected not faster than 6-8 mEq in 24 hours. (4) UTI (urinary tract infection) Current Visit: Yes Status: Acute Assessment and Plan: -In the ED patient UA was positive for large amount of leukocyteesterase. -Patient currently on Rocephin -Urine Cultures are pending (5) Type 2 diabetes mellitus Current Visit: Yes Status: Chronic Assessment and Plan: 1. Will place on SSI and monitor glucose closely. 2. Hold oral home meds. (6) DVT prophylaxis Current Visit: Yes Status: Acute Assessment and Plan: 1. Heparin SQ. - Time Spent with Patient Total time spent is greater than 50% in coordination of care (as documented) at patient's floor/unit and/or counseling patient: Internal Medicine: Result - Labs CBC & Chem 7: 07/31/18 04:19 07/31/18 14:16 Labs: Short CBC 07/30/18 07/31/18 Range/Units 18:15 04:19 WBC 16.3 H 18.8 H (4.3-11.1) K/mcL Hgb 10.4 L 11.0 L (11.5-15.4) g/dL Hct 32.2 L 35.3 (35.3-44.9) % Plt Count 206 180 (140-400) K/mcL Neutrophils # 14.6 H 16.3 H (1.6-8.9) K/mcL BMP 07/30/18 07/31/18 07/31/18 18:15 04:42 09:16 Sodium 130 L 128 L 132 L Potassium 2.8 L 3.6 D Chloride 85 L 84 L Carbon Dioxide 34 H 33 H BUN 46 H 40 H Creatinine 1.36 H 1.11 Glucose 460 H 324 H Calcium 8.4 L 8.2 L Liver Function 07/30/18 07/31/18 Range/Units 18:15 04:42 Total Bilirubin 1.4 H 1.2 H (0.3-1.0) mg/dL Direct Bilirubin 0.5 H (0.0-0.2) mg/dL AST 28 32 (13-39) Units/L ALT 14 13 (7-52) Units/L Alkaline Phosphatase 198 H 205 H (34-104) Units/L Albumin 2.9 L 2.8 L (3.5-5.7) g/dL Urine 07/30/18 Range/Units 18:49 Urine Color Dark Yellow (Yellow) Urine Clarity Turbid A (Clear) Urine pH 5.0 (5.0-8.0) pH Units Ur Specific [place] 1.024 (1.010-1.025) Urine Protein 100 H (Neg-Trace) mg/dL Urine Glucose (UA) >=1000 H (Normal) mg/dL - ABG Interpretation ABG results: PT/INR, D-dimer PT 12.4 Seconds (9.4-12.1) H 07/31/18 04:42 - Impressions Impressions Abdomen/Pelvis CT 07/30/18 18:37 IMPRESSION: 1. Multiple ill-defined low-density lesions throughout the liver with slight nodularity of the contour of the liver. Findings could represent hepatic metastatic disease or multifocal HCC within a cirrhotic liver. Diffuse abdominal and pelvic ascites. 2. Multiple low-density lesions throughout the pancreatic body and tail with the largest measuring up to 1.3 cm in the pancreatic tail. Further evaluation/workup with MR abdomen/MRCP is recommended. Differential considerations include IPMN. A 1.1 cm peripancreatic lymph node. Fat stranding in the omental fat could be related to developing/early peritoneal carcinomatosis. 3. Mild nonspecific prominence of the wall of the small bowel loops could be related to enteritis or adjacent ascites. Prominence of the colonic kelley could be related to incomplete distention. Colitis not excluded. 4. Moderate free fluid in the pelvis. Prior hysterectomy. 5. There is 7 mm anterolisthesis of L4 on L5. There is 1 mm retrolisthesis of L2 on L3. 6. Small left-sided pleural effusion. Small amount of pericardial fluid. 7. Coronary artery disease. Critical results were called by Dr. Jimmy Ramon MD to Fred Ayala on 07/30/2018 at 19:38. D/ / 07/30/2018 19:51:29 Jimmy Ramon MD / marti Interpreting Provider: Jimmy Ramon MD Chest X-Ray 07/30/18 18:37 IMPRESSION: Mild left retrocardiac airspace disease suspicious for pneumonia. There are a few bands of acute versus chronic bibasilar atelectasis. D/ / Judson Rothman MD / Judson Rothman MD Interpreting Provider: Judson Rothman MD <DrEstella Sanchez - Last Filed: 07/31/18 13:34> (2) Pneumonia Qualifiers: Pneumonia type: due to unspecified organism Laterality: unspecified lat erality Lung location: lower lobe of lung Qualified Code(s): J18.1 - Lobar pneumonia, unspecified organism (3) UTI (urinary tract infection) Qualifiers: Urinary tract infection type: acute cystitis Hematuria presence: without hematuria Qualified Code(s): N30.00 - Acute cystitis without hematuria (4) Type 2 diabetes mellitus Qualifiers: Diabetes mellitus predatory animal exterminator insulin use: without predatory animal exterminator use Diabetes mellitus complication status: without complication Qualified Code(s): E11.9 - Type 2 diabetes mellitus without complications <Louie Cross - Last Filed: 07/31/18 17:56> (2) Pneumonia Qualifiers: Pneumonia type: due to unspecified organism Laterality: unspecified laterality Lung location: lower lobe of lung Qualified Code(s): J18.1 - Lobar pneumonia, unspecified organism (4) UTI (urinary tract infection) Qualifiers: Urinary tract infection type: acute cystitis Hematuria presence: without hematuria Qualified Code(s): N30.00 - Acute cystitis without hematuria (5) Type 2 diabetes mellitus Qualifiers: Diabetes mellitus senior living insulin use: without senior living use Diabetes mellitus complication status: without complication Qualified Code(s): E11.9 - Type 2 diabetes mellitus without complications
[2018-07-31] MEDS: traMADol 50 MG TABLET PO PRN (14:41)
[2018-07-31] MEDS ORDERED: *HR* OxyCODONE Immed Rel 5 MG TABLET PO ONE (16:59)
[2018-07-31] MEDS: Azithromycin 500 MG in D5% in Water 250 ML IVPB SCH (21:05)
[2018-08-01] MEDS: Insulin LISPRO 300 UNITS/3 ML VIAL SQ SCH ×5 (00:07→20:47)
[2018-08-01 02:20] LABS: Basophils % 0.2 %; Eosinophils # 0.2 K/mcL (0.0-0.6); Eosinophils % 1.3 %; Hematocrit 31.1 % (35.3-44.9); Hemoglobin 9.7 g/dL (11.5-15.4); Immature Granulocytes % 1.1 % (0-4); Lymphocytes # 1.1 K/mcL (0.6-4.6); Lymphocytes % 7.4 %; Mean Corpuscular HGB Conc 31.2 g/dL (31.6-35.5); Mean Corpuscular Hemoglobin 25.5 pg (28.0-33.3); Mean Corpuscular Volume 81.8 fL (83.0-100.0); Mean Platelet Volume 13.2 fL (9.4-12.4); Monocytes # 0.5 K/mcL (0.0-1.3); Monocytes % 3.1 %; Neutrophils # 12.5 K/mcL (1.6-8.9); Nucleated Red Blood Cells 0.1 /100 WBC (0); Platelet Count 187 K/mcL (140-400); Red Cell Distribution Width 16.5 % (11.5-14.5); Segmented Neutrophils % 86.9 %
[2018-08-01 02:27] LABS: INR 1.1; Prothrombin Time 12.2 Seconds (9.4-12.1)
[2018-08-01 02:44] LABS: BUN/Creatinine Ratio 33 (6-26); Blood Urea Nitrogen 32 mg/dL (8-23); Calcium 7.8 mg/dL (8.6-10.3); Carbon Dioxide 27 mEq/L (23-29); Chloride 93 mEq/L (98-107); Glucose 169 mg/dL (70-105); Osmolality,Calculated 279 (280-300); Potassium 4.2 mEq/L (3.5-5.1); Sodium 129 mEq/L (136-145); eGFR For Non-African Americans 55 (> 60)
[2018-08-01] MEDS: 0.9 % Sodium Chloride w KCl 20 MEQ/1,000 ML MLS IVC SCH ×2 (03:41→08:10)
[2018-08-01] MEDS: *HR* Heparin 5,000 UNIT/ML VIAL SQ SCH ×2 (05:46→17:25)
[2018-08-01 08:55] LABS: Estimated Average Glucose 226 mg/dl; Hemoglobin A1C 9.5 %
--- NOTE | 2018-08-01 09:39 | Internal Med Progress Note ---
<Susana Muñoz N - Last Filed: 08/01/18 12:41> Hospitalist Progress Note - Encounter Date of Encounter: 08/01/18 Time of Encounter: 09:38 - Subjective Interval History: Patient seen and examined at bedside this morning. She states she is subjectively better. Denies any abdominal pain, denies nausea or vomiting. Has remained nothing by mouth overnight for liver biopsy today. - Exam Vitals: Temp Pulse Resp BP Pulse Ox 97.9 F 119 17 110/64 97 08/01/18 07:42 08/01/18 07:42 08/01/18 07:42 08/01/18 07:42 08/01/18 07:42 Exam: Gen.: Cachectic in appearance, no acute distress HEENT: Pupils are equal and round. EOMI. Head is normocephalic atraumatic. Extremities moist. Neck: No JVD, trachea midline Cardiac: RRR, no murmur, +S1/S2, No BLE edema Pulmonary: CTA bilaterally, no wheezes, rales or rhonchi Abdomen: Slightly distended but soft, no tenderness to palpation Skin: warm and dry, no visible lesions. Neuro: No obvious focal neurological deficits Psych: Appropriate mood and behavior, AOx3 - Assessment and Plan (1) Liver mass Current Visit: Yes Status: Acute Assessment and Plan: -Multiple lesions noted on liver on CT scan concerning for malignancy -Unknown if primary or metastatic at this time -There are also lesions present on the pancreas, raising concern for a possible metastatic pancreatic cancer Plan: -Biopsy liver mass today -Holding aspirin prior to biopsy -AFP and CA 19-9 ordered -Patient remains full code, will discuss further goals of care pending biopsy results (2) Hyponatremia Current Visit: Yes Status: Acute Assessment and Plan: -Patient hyponatremic on admission with sodium 1:30 -Has received IV fluids since admission, however sodium today is 129 -Patient states that she takes salt tablets at home, but this has not been confirmed by pharmacy Plan: -We will collect urine sodium and urine creatinine studies -Continue IV fluids for now -We will confirm with pharmacy regarding salt tablets and supplement if indicated (3) Hypokalemia Current Visit: Yes Status: Acute Assessment and Plan: -Hypokalemia improved Plan: -We will continue to monitor (4) Pneumonia Current Visit: Yes Status: Acute Assessment and Plan: -Retrocardiac pneumonia noted on chest x-ray -CT scan concerning for nodules that are inflammatory versus metastatic -WBC count elevated but trending down -Blood cultures pending, no growth to date -Normotensive but tachycardic Plan: -We will continue azithromycin and Rocephin (5) UTI (urinary tract infection) Current Visit: Yes Status: Acute Assessment and Plan: -Urinalysis concerning for possible UTI, however moderate squamous epithelial cells are present -Cultures pending Plan: -Patient on antibiotics for suspected pneumonia -We will follow urine culture (6) Type 2 diabetes mellitus Current Visit: Yes Status: Chronic Assessment and Plan: SSI (7) DVT prophylaxis Current Visit: Yes Status: Acute Assessment and Plan: Heparin subcutaneous - Time Spent with Patient Total time spent is greater than 50% in coordination of care (as documented) at patient's floor/unit and/or counseling patient: Internal Medicine: Result - Labs CBC & Chem 7: 08/01/18 01:56 08/01/18 01:56 Labs: Short CBC 08/01/18 Range/Units 01:56 WBC 14.4 H (4.3-11.1) K/mcL Hgb 9.7 L (11.5-15.4) g/dL Hct 31.1 L (35.3-44.9) % Plt Count 187 (140-400) K/mcL Neutrophils # 12.5 H (1.6-8.9) K/mcL BMP 07/31/18 07/31/18 07/31/18 09:16 14:16 17:36 Sodium 132 L 133 L 133 L Potassium Chloride Carbon Dioxide BUN Creatinine Glucose Calcium 07/31/18 08/01/18 21:47 01:56 Sodium 131 L 129 L Potassium 4.2 Chloride 93 L Carbon Dioxide 27 BUN 32 H Creatinine 0.96 Glucose 169 H Calcium 7.8 L - ABG Interpretation ABG results: PT/INR, D-dimer PT 12.2 Seconds (9.4-12.1) H 08/01/18 01:56 - Impressions Impressions Chest CT 07/31/18 15:06 IMPRESSION: Small pleural effusions and dependent opacities, favoring atelectasis. Scattered noncalcified pulmonary micronodules are noted. Some of these nodules have a ground-glass appearance and may be related to inflammatory change versus metastatic disease. Short-term CT follow-up in 3 months is recommended. Findings suspicious for liver metastatic disease and upper abdominal ascites, as seen on recent abdominal imaging. D/ / Ja Ortiz / Ja Ortiz Interpreting Provider: Ja Ortiz Consult Discharge Plan - Plan Referrals: Reece Kruger MD [Primary Care Provider] - <Estella Bentley - Last Filed: 08/01/18 13:43> Hospitalist Progress Note - Encounter Date of Encounter: 08/01/18 - Exam Vitals: Temp Pulse Resp BP Pulse Ox 97.9 F 115 16 118/70 97 08/01/18 12:03 08/01/18 12:03 08/01/18 12:03 08/01/18 12:03 08/01/18 12:03 - Assessment and Plan (1) Liver mass Current Visit: Yes Status: Acute (2) Hyponatremia Current Visit: Yes Status: Acute (3) Pneumonia Current Visit: Yes Status: Acute (4) UTI (urinary tract infection) Current Visit: Yes Status: Acute (5) Type 2 diabetes mellitus Current Visit: Yes Status: Chronic (6) DVT prophylaxis Current Visit: Yes Status: Acute - Time Spent with Patient Total time spent is greater than 50% in coordination of care (as documented) at patient's floor/unit and/or counseling patient: Internal Medicine: Result - Labs CBC & Chem 7: 08/01/18 01:56 08/01/18 01:56 Labs: Short CBC 08/01/18 Range/Units 01:56 WBC 14.4 H (4.3-11.1) K/mcL Hgb 9.7 L (11.5-15.4) g/dL Hct 31.1 L (35.3-44.9) % Plt Count 187 (140-400) K/mcL Neutrophils # 12.5 H (1.6-8.9) K/mcL BMP 07/31/18 07/31/18 07/31/18 14:16 17:36 21:47 Sodium 133 L 133 L 131 L Potassium Chloride Carbon Dioxide BUN Creatinine Glucose Calcium 08/01/18 01:56 Sodium 129 L Potassium 4.2 Chloride 93 L Carbon Dioxide 27 BUN 32 H Creatinine 0.96 Glucose 169 H Calcium 7.8 L - ABG Interpretation ABG results: PT/INR, D-dimer PT 12.2 Seconds (9.4-12.1) H 08/01/18 01:56 - Impressions Impressions Chest CT 07/31/18 15:06 IMPRESSION: Small pleural effusions and dependent opacities, favoring atelectasis. Scattered noncalcified pulmonary micronodules are noted. Some of these nodules have a ground-glass appearance and may be related to inflammatory change versus metastatic disease. Short-term CT follow-up in 3 months is recommended. Findings suspicious for liver metastatic disease and upper abdominal ascites, as seen on recent abdominal imaging. D/ / Ja Ortiz / Ja Ortiz Interpreting Provider: Ja Ortiz Liver Biopsy CT 08/01/18 00:01 IMPRESSION: Successful CT guided core biopsy of the left lobe liver mass. D/ / 08/01/2018 10:38:55 Rosario Edward MD / reji Interpreting Provider: Rosario Edward MD - Attending Attestation I examined this patient and my medical decision-making was reviewed with the Resident Physician Dr Muñoz. I agree with the documented findings, disposition and treatment plan as described except to the extent set forth below. Ms Granado is admitted with abd pain/n/v/d suspected to be 2/2 liver/pancreas metastatic malignancy. Unclear primary source at this time. She additionally has been diagnosed with UTI and CAP awake, resting in bed, pleasant. cont intermittent abd, nausea. no sob. no fevers. gen- alert, awake,appears stated age, frail cv- reg rate and rhythm, normal s1,s2, no murmurs appreciated lungs- ctabl, no wheezing, rhonchi or crackles, normal resp effort room air abd- soft, non tender, non distended, + bs neuro- AAOx3 Abd pain/n/v/d likely 2/2 intra abdominal malignancy with mets CT scan reviewed liver lesions, pancreas lesions, possible early peritoneal carcinamatosis, bowel edema and diffuse ascites -oncology following, CT guided bx as consented by pt today CAP- azithro + rocephin UTI- rocephin, cx mixed organisms, resend cx Hyponatremia, pt reporting chronic and taking salt tabs at home but confirmed med rec did not show this- gentle ivfs, na monitoring, neuro checks, urine studies, will ask pharm to confirm salt tabs at home, not on med list HTN- holding home imdur, CCB due to lower BPs, add back BB today, add back meds as needed/BP tolerates further assessment and plan as noted by resident <Susana Muñoz N - Last Filed: 08/01/18 12:41> (4) Pneumonia Qualifiers: Pneumonia type: due to unspecified organism Laterality: unspecified laterality Lung location: lower lobe of lung Qualified Code(s): J18.1 - Lobar pneumonia, unspecified organism (5) UTI (urinary tract infection) Qualifiers: Urinary tract infection type: acute cystitis Hematuria presence: without hematuria Qualified Code(s): N30.00 - Acute cystitis without hematuria (6) Type 2 diabetes mellitus Qualifiers: Diabetes mellitus shelter insulin use: without shelter use Diabetes mellitus complication status: without complication Qualified Code(s): E11.9 - Type 2 diabetes mellitus without complications <Estella Bentley M - Last Filed: 08/01/18 13:43> (3) Pneumonia Qualifiers: Pneumonia type: due to unspecified organism Laterality: unspecified laterality Lung location: lower lobe of lung Qualified Code(s): J18.1 - Lobar pneumonia, unspecified organism (4) UTI (urinary tract infection) Qualifiers: Urinary tract infection type: acute cystitis Hematuria presence: without hematuria Qualified Code(s): N30.00 - Acute cystitis without hematuria (5) Type 2 diabetes mellitus Qualifiers: Diabetes mellitus intermediate accountant insulin use: without intermediate accountant use Diabetes naya litus complication status: without complication Qualified Code(s): E11.9 - Type 2 diabetes mellitus without complications
[2018-08-01] MEDS ORDERED: 0.9 % Sodium Chloride 500 ML ONE (09:41)
--- NOTE | 2018-08-01 10:21 | IR Procedure Note ---
Date of procedure: 08/01/18 Consent Obtained: Written consent Timeout: Correct patient and procedure verified, Correct site verified, Time out performed, Skin prep completed Local anesthetic: Lidocaine 1% Indications: metastatic liver disease Procedure Performed: liver biopsy Was there an registered medical assistant present: Yes Inspector Cold Working: Rosario Edward Site/Technique: liver bx left lobe mass Results/Findings: diffuse liver mets on CT Estimated blood loss (cc): 0 Complications: None; Tolerated procedure well Post Procedure Treatment Plan: return to floor Specimen: 3 18 gauge core needle biopsy
[2018-08-01] MEDS: Aspirin Enteric Coated 81 MG Tablet PO SCH ×2 (10:39→10:41)
[2018-08-01] MEDS: cefTRIAXone 2,000 MG in Water for inj. (sterile) 20 ML 20 ML IVP SCH (10:50)
[2018-08-01] MEDS: traMADol 50 MG TABLET PO PRN ×2 (10:50→20:47)
[2018-08-01] MEDS: 0.9 % Sodium Chloride 1,000 ML IVC SCH ×2 (10:51→23:59)
--- NOTE | 2018-08-01 13:11 | Oncology Inp Progress Note ---
<Dali Villar M - Last Filed: 08/01/18 17:24> Date of Encounter: 08/01/18 Time of Encounter: 12:20 (1) Liver mass Current Visit: Yes Status: Acute Assessment and plan: Ms. Granado presents with abdominal pain, nausea, vomiting CT imaging showing extensive replacement of her liver by malignancy. In addition, she is ascites. There may also be peritoneal carcinomatosis. She states she thinks she had a colonoscopy in the recent past. This represents either a primary liver malignancy were a possible metastatic process involving the liver. The patient may entertain therapy. However, given her age and frailty, our options will be limited. There is no family to discuss this with at this time. For now, I do recommend repeat with CT guided biopsy of the liver. This will hopefully be performed tomorrow. I canceled MRI of the liver as it will not change our approach to these findings. We will need tissue confirmation for malignancy as well as for possible next generation sequencing for non-chemotherapeutic option s. CT of the chest has been ordered to complete staging. If her headache persists, would consider MRI imaging of the brain. AFP and CA 199 has been ordered. Further decisions pending biopsy as well as discussion with the patient and family regarding goals of care. We will consider palliative care consultation over the next day or so. AFP pending CA 19-9 pending 08/01/18: CT guided liver biopsy- pathology pending. (2) Nausea Current Visit: Yes Status: Acute Assessment and plan: Nausea:uncontrolled Poor po intake. Plan: Schedule Zofran 4 mg IV every 8 hours. Contact [employer] met with patient and daughter this morning. Encouraged Ensure. Encourage bland diet. Oncology: Subj Interval history: Yue, is awake and alert in bed after CT-guided biopsy of liver lesion this morning. Her 2 daughters and youngest brother are at bedside. Yue is alert and oriented to person, place, and time, but unable to recall events of the morning. She looks to her daughter for assistance with answering questions. Her daughter notes that she continues to complain of abdominal pain. Yue notes diffuse abdominal pain upon exam. She states that she continues with nausea, without vomiting. Her daughter also notes that Yue is having diarrhea. She denies fever or chills. Contact [employer] saw patient this morning and discussed addition of ensure to daily intake. Discussed that it can take 3-5 days for pathology to result. After pathology results, can discuss potential for treatment options. Family verbalized acceptance. - Constitutional General appearance: cooperative, no acute distress, thin - Head Head exam: Present: normal inspection, normocephalic - Neck Neck exam: Present: normal inspection. Absent: lymphadenopathy - Respiratory Respiratory exam: Present: decreased breath sounds, CTAB - Cardiovascular Cardiovascular exam: Present: RRR, systolic murmur - GI/Abdominal GI/Abdominal exam: Present: normal bowel sounds, soft, tenderness. Absent: distended, guarding - Extremities Exam Extremities exam: Present: normal capillary refill, normal inspection. Absent: tenderness - Neurological Exam Neurological exam: Present: alert, oriented X3. Absent: facial droop, speech deficit (forgetful) - Psychiatric Psychiatric exam: Present: normal affect, normal mood - Skin Skin exam: Present: pallor Oncology: Obj Data - Labs CBC & Chem 7: 08/01/18 01:56 08/01/18 13:31 Consult Discharge Plan - Plan Referrals: Reece Kruger MD [Primary Care Provider] - Inpatient Charges Provider: Dr. Pedro Rothman <Duglas Rothman - Last Filed: 08/01/18 20:18> Date of Encounter: 08/01/18 (1) Liver mass Current Visit: Yes Status: Acute Oncology: Obj Data - Labs CBC & Chem 7: 08/01/18 01:56 08/01/18 13:31 Inpatient Charges Provider: Dr. Pedro Rothman Follow up - Inpatient: [id number] - Attending Attestation I examined this patient and my medical decision-making was reviewed with the Advanced Practice Nurse. I agree with the documented findings, disposition and treatment plan as described except to the extent set forth below. Ms. Granado continues have abdominal pain and discomfort. Oral intake is poor and she has nausea. Biopsy was completed today we are awaiting these results. CT scan of chest was also completed. Imaging was reviewed. CT chest with subcentimeter pulmonary rales that are nonspecific. Gastroenterology is also waiting and is considering EUS. I would recommend against EUS as it will not have implications to our management unless our liver biopsy is nondiagnostic. We have placed her on Zofran to help with her nausea. We will attempt to meet with her family discussed goals of care. Patient has significant dementia. The patient has limited insight into the process in her decision making appears to be diminished. In addition, she is very symptomatic from her tumor. It is unlikely chemotherapy or other therapy will be able to improve upon her symptomatology. I think hospice measures may be better option for her. We will consider palliative care discussion as well.
[2018-08-01 14:07] LABS: BUN/Creatinine Ratio 31 (6-26); Blood Urea Nitrogen 29 mg/dL (8-23); Calcium 7.8 mg/dL (8.6-10.3); Carbon Dioxide 27 mEq/L (23-29); Chloride 94 mEq/L (98-107); Glucose 144 mg/dL (70-105); Osmolality,Calculated 284 (280-300); Potassium 4.8 mEq/L (3.5-5.1); Sodium 133 mEq/L (136-145); eGFR For Non-African Americans 57 (> 60)
--- NOTE | 2018-08-01 14:09 | Gastroenterology Consult Note ---
Date of Encounter: 08/01/18 Time of Encounter: 11:15 - Assessment and plan (1) Cirrhosis Current Visit: Yes Status: Acute Assessment and plan: MELD-Na 16 and Child-Dunbar class B. Recommend 2-4 BMs daily, use Lactulose if needed. Complete paracentesis as needed. Infuse Albumin 25%, 8 gm/L if greater than 5 liters removed. Lifestyle Changes: 1. Total abstinence from alcohol including social drinking. 2. No smoking. 3. Gradual loss of weight. 4. Drink at least 3 cups of coffee due to its antioxidant effects in the liver, it reduces risk of HCC and advance fibrosis. 5. If needed, use less than 2 g/day of Tylenol (in divided doses). 6. Vaccination for Hep A, B, Pneumococcus if not already received and yearly influenza vaccination by PCP. 7. Avoid NSAIDS as can cause kidney damage. 8. Avoid benzodiazepines and other sedatives such as anti-histamines, narcotics etc. as can cause encephalopathy or confusion. 9. Take a late carbohydrate meal supplement as it reduces glucose production from protein breakdown and thus improves nutrition. 10. In cirrhosis, statins are safe to use and also improve portal hypertension and decrease risk of HCC. 11. Screening: Hepatocellular cancer screening: US of liver and AFP every 6 mon ths Qualifiers: Hepatic cirrhosis type: unspecified hepatic cirrhosis Ascites presence: with ascites Qualified Code(s): K74.60 - Unspecified cirrhosis of liver; R18.8 - Other ascites (2) Liver mass Current Visit: Yes Status: Acute Assessment and plan: CT A/P showed multiple ill-defined low-density lesions throughout the liver with slight nodularity of the contour of the liver which could represent hepatic metastatic disease or multifocal HCC within a cirrhotic liver. Diffuse abdominal pelvic ascites was identified. Multiple low-density lesions at the pancreatic body and tail with the largest measuring 1.3 cm. Presence of omental fat related to developing/early peritoneal carcinomatosis. There is mild nonspecific prominence of wall of the small bowel loops related to enteritis or ascites. Moderate free fluid was in the pelvis. Small left-sided pleural effusion as well as small pericardial effusion were pre sent. Liver biopsy complete this morning, pathology pending. Concern for possible pancreatic mass. Consider EUS tomorrow. AFP and CA 19-9 pending. - Time Spent With Patient Total time spent is greater than 50% in coordination of care (as documented) at patient's floor/unit and/or counseling patient: GI History of Present Illness - Data of Consult Patient: new to practice Consult date: 08/01/18 Requesting Physician: Estella Bentley - Consult Narrative Reason for consult: Suspect pancreatic vs liver cancer History of present illness: Ms. Granado is a 82 year old female with PMHx of DM, HLD, HTN who presented to the ER with complaints of abdominal pain, nausea, vomiting, unintentional weight loss, fatigue, and dehydration. Symptoms started about 2-3 months ago and have progressively worsened. CT A/P showed multiple ill-defined low-density lesions throughout the liver with slight nodularity of the contour of the liver which could represent hepatic metastatic disease or multifocal HCC within a cirrhotic liver. Diffuse abdominal pelvic ascites was identified. Multiple low-density lesions at the pancreatic body and tail with the largest measuring 1.3 cm. Presence of omental fat related to developing/early peritoneal carcinomatosis. There is mild nonspecific prominence of wall of the small bowel loops related to enteritis or ascites. Moderate free fluid was in the pelvis. Small left-sided pleural effusion as well as small pericardial effusion were present. She is complaining of abdominal pain and nausea this morning following liver biopsy. We were consulted to evaluate possible liver vs pancreatic cancer. Procedures: Colonoscopy 10/26/2011 Dr. Mcdaniels: Significant looping of the colon, 4 mm hyperplastic polyp, repeat 3-5 years. Colonoscopy 03/23/2003 Dr. Gentile: Benign biopsies. NSAIDs: ASA Anticoagulation: None Past Med Surg Social Fam HX - Past Medical History Medical history: diabetes, hyperlipidemia, hypertension Additional medical history: multiple sclerosis Psychiatric history: no psych history - Past Surgical History Surgical History: cholecystectomy, hysterectomy Additional surgical history: lump removed from right breast - Social History Smoking Status: Never smoker Alcohol use: none Drug use: none - Family History Mother Living Status: Hx Family GI Disorders: No Father Living Status: Hx Family GI Disorders: No - Gastrointestinal Gastrointestinal: Present: as per HPI - Constitutional Constitutional: as per HPI - EENT Eyes: as per HPI Ears: Present: as per HPI Nose, mouth and throat: Present: as per HPI - Cardiovascular Cardiovascular ROS: Present: as per HPI - Respiratory Respiratory IM: Present: as per HPI - Genitourinary Genitourinary: Absent: change in color, Urinary frequency - Neurological ROS Neurological GI: Present: as per HPI - Hematologic/Lymphatic Hematologic/Lymphatic pediatric: Present: as per HPI - Musculoskeletal Musculoskeletal ROS GI: Present: as per HPI - Integumentary Integumentary GI: Present: as per HPI - Psychiatric ROS Psychiatric GI: Present: as per HPI - Endocrine Endocrine IM: Present: as per HPI - Constitutional Vitals: Temp Pulse Resp BP Pulse Ox 97.9 F 115 16 118/70 97 08/01/18 12:03 08/01/18 12:03 08/01/18 12:03 08/01/18 12:03 08/01/18 12:03 General appearance: Present: cachectic, cooperative, A&O X 3, no acute distress, answers questions appropriately - Head Head exam: Present: atraumatic, normocephalic - Eye Eye exam: Present: normal appearance, sclera anicteric - ENT ENT exam: Present: mucous membranes dry - Neck Neck exam general surgery: Present: normal inspection, trachea midline - Respiratory Respiratory exam: Present: decreased breath sounds, CTAB - Cardiovascular Cardiovascular exam: Present: RRR, +S1, +S2 - GI/Abdominal GI/Abdominal exam: Present: soft, tenderness (generalized), no peritoneal signs. Absent: distended, firm, guarding - Rectal Rectal exam: Present: deferred - Extremities Exam Extremities exam: Present: warm - Neurological Exam Neurological exam: Present: no focal deficits - Psychiatric Psychiatric exam: Present: normal affect, normal mood - Skin Skin exam: Present: dry, intact, normal color, warm Results - Labs CBC & Chem 7: 08/01/18 01:56 08/01/18 13:31 Labs: Last Result Calcium 7.8 mg/dL (8.6-10.3) L 08/01/18 01:56 Triglycerides 177 mg/dL (< 150) H 07/31/18 04:42 Entire Visit Hgb 9.7 g/dL (11.5-15.4) L 08/01/18 01:56 Hct 31.1 % (35.3-44.9) L 08/01/18 01:56 PT 12.2 Seconds (9.4-12.1) H 08/01/18 01:56 Total Bilirubin 1.2 mg/dL (0.3-1.0) H 07/31/18 04:42 AST 32 Units/L (13-39) 07/31/18 04:42 ALT 13 Units/L (7-52) 07/31/18 04:42 Lipase 166 Units/L (11-82) H 07/30/18 18:15 - ABG ABG results: PT/INR, D-dimer PT 12.2 Seconds (9.4-12.1) H 08/01/18 01:56 - Impressions Impressions Chest CT 07/31/18 15:06 IMPRESSION: Small pleural effusions and dependent opacities, favoring atelectasis. Scattered noncalcified pulmonary micronodules are noted. Some of these nodules have a ground-glass appearance and may be related to inflammatory change versus metastatic disease. Short-term CT follow-up in 3 months is recommended. Findings suspicious for liver metastatic disease and upper abdominal ascites, as seen on recent abdominal imaging. D/ / Ja Ortiz / Ja Ortiz Interpreting Provider: Ja Ortiz Liver Biopsy CT 08/01/18 00:01 IMPRESSION: Successful CT guided core biopsy of the left lobe liver mass. D/ / 08/01/2018 10:38:55 Rosario Edward MD / reji Interpreting Provider: Rosario Edward MD Consult Discharge Plan - Plan Referrals: Reece Kruger MD [Primary Care Provider] -
[2018-08-01] MEDS: Azithromycin 500 MG in D5% in Water 250 ML IVPB SCH (20:42)
[2018-08-01 22:47] LABS: Sodium, Urine 21.6 mEq/L
[2018-08-01] MEDS: Ondansetron 4 MG/2 ML VIAL IVP SCH (23:58)
[2018-08-02] MEDS: traMADol 50 MG TABLET PO PRN (03:32)
[2018-08-02] MEDS: *HR* Heparin 5,000 UNIT/ML VIAL SQ SCH ×2 (05:05→17:24)
[2018-08-02 05:57] LABS: Basophils % 0.1 %; Eosinophils # 0.1 K/mcL (0.0-0.6); Eosinophils % 0.8 %; Hematocrit 29.9 % (35.3-44.9); Hemoglobin 9.3 g/dL (11.5-15.4); Immature Granulocytes % 1.7 % (0-4); Lymphocytes # 0.7 K/mcL (0.6-4.6); Lymphocytes % 4.5 %; Mean Corpuscular HGB Conc 31.1 g/dL (31.6-35.5); Mean Corpuscular Hemoglobin 25.8 pg (28.0-33.3); Mean Corpuscular Volume 83.1 fL (83.0-100.0); Mean Platelet Volume 13.1 fL (9.4-12.4); Monocytes # 0.6 K/mcL (0.0-1.3); Monocytes % 3.7 %; Neutrophils # 13.4 K/mcL (1.6-8.9); Platelet Count 178 K/mcL (140-400); Red Cell Distribution Width 16.7 % (11.5-14.5); Segmented Neutrophils % 89.2 %
[2018-08-02 06:14] LABS: BUN/Creatinine Ratio 32 (6-26); Blood Urea Nitrogen 29 mg/dL (8-23); Calcium 7.6 mg/dL (8.6-10.3); Carbon Dioxide 26 mEq/L (23-29); Chloride 95 mEq/L (98-107); Glucose 274 mg/dL (70-105); Osmolality,Calculated 288 (280-300); Sodium 131 mEq/L (136-145); eGFR For Non-African Americans 58 (> 60)
[2018-08-02] MEDS: cefTRIAXone 2,000 MG in Water for inj. (sterile) 20 ML 20 ML IVP SCH (07:52)
[2018-08-02] MEDS: Insulin LISPRO 300 UNITS/3 ML VIAL SQ SCH ×4 (07:53→20:20)
--- NOTE | 2018-08-02 07:53 | Internal Med Progress Note ---
<Susana Muñoz - Last Filed: 08/02/18 13:03> Hospitalist Progress Note - Encounter Date of Encounter: 08/02/18 Time of Encounter: 07:30 - Subjective Interval History: Patient seen and examined at bedside with family present. No complaints overnight, does have some mild left-sided abdominal pain. No nausea or diarrhea. Underwent CT-guided liver biopsy yesterday. - Exam Vitals: Temp Pulse Resp BP Pulse Ox 97.9 F 109 14 130/75 92 08/02/18 07:22 08/02/18 07:22 08/02/18 07:22 08/02/18 07:22 08/02/18 07:22 Exam: Gen.: Cachectic in appearance, no acute distress HEENT: Pupils are equal and round. EOMI. Head is normocephalic atraumatic. E xtremities moist. Neck: No JVD, trachea midline Cardiac: RRR, no murmur, +S1/S2, No BLE edema Pulmonary: CTA bilaterally, no wheezes, rales or rhonchi Abdomen: Slightly distended but soft, slight tenderness to palpation left upper quadrant Skin: warm and dry, no visible lesions. Neuro: No obvious focal neurological deficits Psych: Appropriate mood and behavior, AOx3 - Assessment and Plan (1) Liver mass Current Visit: Yes Status: Acute Assessment and Plan: -Multiple lesions noted on liver on CT scan concerning for malignancy -Unknown if multifocal HCC versus metastatic pancreatic cancer -Underwent CT-guided liver biopsy yesterday Plan: -GI consultation recommend paracentesis and possible EUS -Biopsy path pending -AFP and CA 19-9 ordered and pending -Patient remains full code, will discuss further goals of care pending biopsy results -It is possible that patient's leukocytosis may be secondary to possible SBP in the setting of liver disease and diffuse ascites noted on CT scan. Will consult interventional radiology for paracentesis with peritoneal fluid studies (2) Hyponatremia Current Visit: Yes Status: Acute Assessment and Plan: Mild hyponatremia in the low 130s Plan: -Likely hypotonic hyponatremia secondary to fluid overload in the setting of ascites -We will continue to monitor (3) Hypokalemia Current Visit: Yes Status: Acute Assessment and Plan: Resolved, continue to monitor (4) Pneumonia Current Visit: Yes Status: Acute Assessment and Plan: -Retrocardiac pneumonia noted on chest x-ray -CT scan concerning for nodules that are inflammatory versus metastatic -WBC count continues to remain elevated -Blood cultures pending, no growth to date -Normotensive but tachycardic Plan: -We will continue azithromycin and Rocephin (5) UTI (urinary tract infection) Current Visit: Yes Status: Acute Assessment and Plan: -Urinalysis concerning for possible UTI, however moderate squamous epithelial cells are present -Cultures pending Plan: -Patient on antibiotics for suspected pneumonia -Resent culture as initial culture had mixed organisms -We will follow urine culture (6) Type 2 diabetes mellitus Current Visit: Yes Status: Chronic Assessment and Plan: SSI (7) DVT prophylaxis Current Visit: Yes Status: Acute Assessment and Plan: Heparin SQ - Time Spent with Patient Total time spent is greater than 50% in coordination of care (as documented) at patient's floor/unit and/or counseling patient: Internal Medicine: Result - Labs CBC & Chem 7: 08/02/18 05:18 08/02/18 05:18 Labs: Short CBC 08/02/18 Range/Units 05:18 WBC 15.0 H (4.3-11.1) K/mcL Hgb 9.3 L (11.5-15.4) g/dL Hct 29.9 L (35.3-44.9) % Plt Count 178 (140-400) K/mcL Neutrophils # 13.4 H (1.6-8.9) K/mcL BMP 08/01/18 08/02/18 13:31 05:18 Sodium 133 L 131 L Potassium 4.8 4.0 Chloride 94 L 95 L Carbon Dioxide 27 26 BUN 29 H 29 H Creatinine 0.94 0.92 Glucose 144 H 274 H Calcium 7.8 L 7.6 L - ABG Interpretation ABG results: PT/INR, D-dimer PT 12.2 Seconds (9.4-12.1) H 08/01/18 01:56 - Impressions Impressions Liver Biopsy CT 08/01/18 00:01 IMPRESSION: Successful CT guided core biopsy of the left lobe liver mass. D/ / 08/01/2018 10:38:55 Ros[facility] Edward [facility] Interpreting Provider: Rosario Edward MD Consult Discharge Plan - Plan Referrals: Reece Kruger MD [Primary Care Provider] - <Estella Bentley - Last Filed: 08/02/18 13:24> Hospitalist Progress Note - Encounter Date of Encounter: 08/02/18 - Exam Vitals: Temp Pulse Resp BP Pulse Ox 98.0 F 93 16 123/78 96 08/02/18 11:20 08/02/18 11:20 08/02/18 11:20 08/02/18 11:20 08/02/18 11:20 - Assessment and Plan (1) Liver mass Current Visit: Yes Status: Acute (2) Hyponatremia Current Visit: Yes Status: Acute (3) Pneumonia Current Visit: Yes Status: Acute (4) UTI (urinary tract infection) Current Visit: Yes Status: Acute (5) Type 2 diabetes mellitus Current Visit: Yes Status: Chronic (6) DVT prophylaxis Current Visit: Yes Status: Acute - Time Spent with Patient Total time spent is greater than 50% in coordination of care (as documented) at patient's floor/unit and/or counseling patient: Internal Medicine: Result - Labs CBC & Chem 7: 08/02/18 05:18 08/02/18 05:18 Labs: Short CBC 08/02/18 Range/Units 05:18 WBC 15.0 H (4.3-11.1) K/mcL Hgb 9.3 L (11.5-15.4) g/dL Hct 29.9 L (35.3-44.9) % Plt Count 178 (140-400) K/mcL Neutrophils # 13.4 H (1.6-8.9) K/mcL BMP 08/01/18 08/02/18 13:31 05:18 Sodium 133 L 131 L Potassium 4.8 4.0 Chloride 94 L 95 L Carbon Dioxide 27 26 BUN 29 H 29 H Creatinine 0.94 0.92 Glucose 144 H 274 H Calcium 7.8 L 7.6 L - ABG Interpretation ABG results: PT/INR, D-dimer PT 12.2 Seconds (9.4-12.1) H 08/01/18 01:56 - Impressions Impressions Abdomen/Pelvis/Transvag US 08/02/18 08:15 IMPRESSION: No significant ascites D/ / Michael Lebron MD / Michael Lebron MD Interpreting Provider: Michael Lebron MD - Attending Attestation I examined this patient and my medical decision-making was reviewed with the Resident Physician Dr Muñoz. I agree with the documented findings, disposition and treatment plan as described except to the extent set forth below. Ms Granado is admitted with abd pain/n/v/d suspected to be 2/2 liver/pancreas metastatic malignancy. Unclear primary source at this time. She additionally has been diagnosed with UTI and CAP awake, resting in bed, granddaughter at bedside, abd pain is intermittent, non ecurrently, no n/v. tolerating small amounts of liquids, encouraged oral intake gen- alert, awake,appears stated age, frail cv- reg rate and rhythm, normal s1,s2, no le edema lungs- ctabl, no wheezing, rhonchi or crackles, normal resp effort room air abd- soft, non tender, + distended, + bs neuro- AAOx3 Abd pain/n/v/d 2/2 intra abdominal malignancy with mets CT scan reviewed liver lesions, pancreas lesions, possible early peritoneal carcinamatosis, bowel edema and diffuse ascites, liver cirrhosis -oncology following, gi following , CT guided bx path pending, therapeutic/diagnostic paracentesis by IR ordered for today, will send cytology -gi rec for lactulose, no bm in 3 days but no signs of hepatic encephalopathy and high risk dehydration- will trial a low dose one time lactulose after procedures today or if not done until later, in the morning, and monitor stool output -gi considering EUS to further assess pancreas CAP- azithro + rocephin UTI- rocephin, cx mixed organisms, resend cx Hyponatremia, pt reporting chronic and taking salt tabs at home but confirmed med rec did not show this- na monitoring, neuro checks, urine studies, will try to confirm salt tab rx as not on med list HTN- holding home imdur, CCB due to lower BPs, have added back BB, add back meds as needed/BP tolerates further assessment and plan as noted by resident <Susana Muñoz N - Last Filed: 08/02/18 13:03> (4) Pneumonia Qualifiers: Pneumonia type: due to unspecified organism Laterality: unspecified laterality Lung location: lower lobe of lung Qualified Code(s): J18.1 - Lobar pneumonia, unspecified organism (5) UTI (urinary tract infection) Qualifiers: Urinary tract infection type: acute cystitis Hematuria presence: without hematuria Qualified Code(s): N30.00 - Acute cystitis without hematuria (6) Type 2 diabetes mellitus Qualifiers: Diabetes mellitus fpc insulin use: without termite treater use Diabetes mellitus complication status: without complication Qualified Code(s): E11.9 - Type 2 diabetes mellitus without complications <Estella Bentley M - Last Filed: 08/02/18 13:24> (3) Pneumonia Qualifiers: Pneumonia type: due to unspecified organism Laterality: unspecified lateral ity Lung location: lower lobe of lung Qualified Code(s): J18.1 - Lobar pneumonia, unspecified organism (4) UTI (urinary tract infection) Qualifiers: Urinary tract infection type: acute cystitis Hematuria presence: without hematuria Qualified Code(s): N30.00 - Acute cystitis without hematuria (5) Type 2 diabetes mellitus Qualifiers: Diabetes mellitus fpc insulin use: without fpc use Diabetes mellitus complication status: without complication Qualified Code(s): E11.9 - Type 2 diabetes mellitus without complications
[2018-08-02] MEDS: Aspirin Enteric Coated 81 MG Tablet PO SCH (07:54)
[2018-08-02] MEDS: Ondansetron 4 MG/2 ML VIAL IVP SCH ×2 (07:54→17:24)
[2018-08-02] MEDS: 0.9 % Sodium Chloride 1,000 ML IVC SCH (13:41)
--- NOTE | 2018-08-02 17:29 | Oncology Inp Progress Note ---
<Tanya Corado L - Last Filed: 08/02/18 17:41> Date of Encounter: 08/02/18 Time of Encounter: 15:00 (1) Liver mass Current Visit: Yes Status: Acute Assessment and plan: Ms. Granado presents with abdominal pain, nausea, vomiting CT imaging showing extensive replacement of her liver by malignancy. In addition, she has ascites, findings concerning for peritoneal carcinomatosis as well as multiple lesions in in the pancreatic body/tail. This represents either a primary liver malignancy were a possible metastatic process involving the liver. Given her age and frailty, our options will be limited. AFP pending CA 19-9 pending 08/01/18: CT guided liver biopsy- pathology pending. Plan: Discussed with patient as well as multiple family members including patients , daughter, granddaughter and son-in-law that her CT imaging as discussed above is concerning for widely metastatic process Treatment would be solely palliative in nature, and dependent upon final pathology may offer her increase in several months in terms of overall survival, but there is significant concern from oncology standpoint as to how well she may tolerate treatments given her overall poor performance status. Patients family also agree that chemotherapy or even immunotherapy/targeted therapy may be poorly tolerated by patient. The hospice philosophy was discussed, patient and family would like to entertain this idea further and discuss tomorrow with palliative care team. The patient was drowsy during much of the conversation, family plan to discuss goals of care further as a group this evening once patients sister arrives Palliative care consulted, we will follow along (2) Nausea Current Visit: Yes Status: Acute Assessment and plan: Presented with nausea with poor oral intake Plan: Well controlled on scheduled Zofran 4 mg IV every 8 hours. Microsoft Application Developer met with patient and daughter this morning. Encouraged Ensure. Encourage bland diet as tolerated - Constitutional General appearance: cooperative, no acute distress, thin, no febrile - Head Head exam: Present: atraumatic - ENT ENT exam: Present: mucous membranes moist, normal oropharynx - Respiratory Respiratory exam: Present: decreased breath sounds, CTAB. Absent: respiratory distress - Cardiovascular Cardiovascular exam: Present: RRR, +S1, +S2 - GI/Abdominal GI/Abdominal exam: Present: distended, normal bowel sounds, organomegaly, te nderness - Extremities Exam Extremities exam: Present: normal inspection. Absent: calf tenderness - Neurological Exam Neurological exam: Present: alert, no focal deficits Additional comments: drowsy but responds to voice, oriented to person - Psychiatric Psychiatric exam: Present: normal affect, normal mood - Skin Skin exam: Present: dry, intact, normal color, warm Oncology: Obj Data - Labs CBC & Chem 7: 08/02/18 05:18 08/02/18 05:18 Consult Discharge Plan - Plan Referrals: Reece Kruger MD [Primary Care Provider] - Inpatient Charges Provider: Dr. Pedro Rothman <LornaDuglas - Last Filed: 08/02/18 22:03> Date of Encounter: 08/02/18 (1) Liver mass Current Visit: Yes Status: Acute Oncology: Obj Data - Labs CBC & Chem 7: 08/02/18 05:18 08/02/18 05:18 Inpatient Charges Provider: Dr. Pedro Rothman Follow up - Inpatient: [id number] - Attending Attestation I examined this patient and my medical decision-making was reviewed with the Advanced Practice Nurse. I agree with the documented findings, disposition and treatment plan as described except to the extent set forth below. I met with the patient's daughter, as well as family today. We discussed that the patient has an advanced malignancy. Treatment would be relegated to systemic chemotherapy. Given her advanced age, poor functional status, dementia as well as frailty, I do not think she will be a good treatment candidate. This was discussed with the family today. The family echo these concerns. In addition, they voice concern over the toxicity and side effects of chemotherapy. It is my opinion the risk would outweigh the benefit for treatment. We discussed expectations moving forward. We discussed that her appetite will continued decline (it has declined significantly already). She will also become more fatigued and tired. I think transitioning to hospice will help maintain her good quality life as well as provide symptom control. Palliative care has been consulted to help with this transition.
[2018-08-02] MEDS: Azithromycin 500 MG in D5% in Water 250 ML IVPB SCH (20:22)
[2018-08-03] MEDS: Ondansetron 4 MG/2 ML VIAL IVP SCH ×3 (01:32→15:15)
[2018-08-03 05:36] LABS: Basophils % 0.3 %; Eosinophils # 0.1 K/mcL (0.0-0.6); Hematocrit 31.6 % (35.3-44.9); Hemoglobin 10.1 g/dL (11.5-15.4); Immature Granulocytes % 1.9 % (0-4); Lymphocytes # 1.1 K/mcL (0.6-4.6); Lymphocytes % 7.4 %; Mean Corpuscular Volume 81.2 fL (83.0-100.0); Mean Platelet Volume 13.3 fL (9.4-12.4); Monocytes # 0.6 K/mcL (0.0-1.3); Neutrophils # 12.4 K/mcL (1.6-8.9); Platelet Count 191 K/mcL (140-400); Red Blood Count 3.89 M/mcL (3.82-4.97); Red Cell Distribution Width 17.3 % (11.5-14.5); Segmented Neutrophils % 85.4 %
[2018-08-03 05:58] LABS: Potassium 4.3 mEq/L (3.5-5.1)
[2018-08-03] MEDS: traMADol 50 MG TABLET PO PRN (06:23)
[2018-08-03] MEDS: *HR* Heparin 5,000 UNIT/ML VIAL SQ SCH ×2 (06:23→16:36)
[2018-08-03] MEDS: Insulin LISPRO 300 UNITS/3 ML VIAL SQ SCH ×4 (08:24→20:13)
[2018-08-03] MEDS: cefTRIAXone 2,000 MG in Water for inj. (sterile) 20 ML 20 ML IVP SCH (08:25)
[2018-08-03] MEDS: Diltiazem CD (24hr) 180 MG CAPSULE PO SCH (08:27)
[2018-08-03] MEDS: Aspirin Enteric Coated 81 MG Tablet PO SCH (08:28)
--- NOTE | 2018-08-03 08:37 | Internal Med Progress Note ---
<Susana Muñoz - Last Filed: 08/03/18 11:28> Hospitalist Progress Note - Encounter Date of Encounter: 08/03/18 Time of Encounter: 08:15 - Subjective Interval History: Patient seen and examined at bedside with family member present. Complains of abdominal pain in the left upper quadrant overnight. Worse with palpation of the epigastric region and inspiration. Plan for family meeting with palliative care this afternoon. - Exam Vitals: Temp Pulse Resp BP Pulse Ox 97.5 F L 107 16 127/76 96 08/03/18 06:34 08/03/18 06:34 08/03/18 06:34 08/03/18 06:34 08/03/18 06:34 Exam: Gen.: Cachectic in appearance, no acute distress HEENT: Pupils are equal and round. EOMI. Head is normocephalic atraumatic. Extremities moist. Neck: No JVD, trachea midline Cardiac: RRR, no murmur, +S1/S2, No BLE edema Pulmonary: CTA bilaterally, no wheezes, rales or rhonchi Abdomen: Slightly distended but soft, tenderness palpating epigastric region and left upper quadrant Skin: warm and dry, no visible lesions. Neuro: No obvious focal neurological deficits Psych: Appropriate mood and behavior, AOx3 - Assessment and Plan (1) Liver mass Current Visit: Yes Status: Acute Assessment and Plan: -Multiple lesions noted on liver on CT scan concerning for malignancy -Unknown if multifocal HCC versus metastatic pancreatic cancer -Underwent CT-guided liver biopsy Plan: -Unable to obtain paracentesis as patient does not have significant ascites to safely perform procedure -Biopsy path pending -AFP and CA 19-9 ordered and pending -Patient remains full code for now, plan for family meeting with palliative care today (2) Hyponatremia Current Visit: Yes Status: Acute Assessment and Plan: Plan: -We will continue to monitor, provide IV fluids if hyponatremia worsens from current baseline (3) Hypokalemia Current Visit: Yes Status: Resolved Assessment and Plan: Resolved (4) Pneumonia Current Visit: Yes Status: Acute Assessment and Plan: -Retrocardiac pneumonia noted on chest x-ray -CT scan concerning for nodules that are inflammatory versus metastatic -WBC count continues to remain elevated -Blood cultures pending, no growth to date -Vital stable Plan: -We will continue azithromycin and Rocephin, day 4 of antibiotics (5) UTI (urinary tract infection) Current Visit: Yes Status: Acute Assessment and Plan: -Urinalysis concerning for possible UTI -Cultures grew yeast species Plan: -We will add fluconazole 200 mg by mouth daily (6) Type 2 diabetes mellitus Current Visit: Yes Status: Chronic Assessment and Plan: SSI (7) DVT prophylaxis Current Visit: Yes Status: Acute Assessment and Plan: Heparin subcutaneous - Time Spent with Patient Total time spent is greater than 50% in coordination of care (as documented) at patient's floor/unit and/or counseling patient: Internal Medicine: Result - Labs CBC & Chem 7: 08/03/18 04:50 08/03/18 04:50 Labs: Short CBC 08/03/18 Range/Units 04:50 WBC 14.5 H (4.3-11.1) K/mcL Hgb 10.1 L (11.5-15.4) g/dL Hct 31.6 L (35.3-44.9) % Plt Count 191 (140-400) K/mcL Neutrophils # 12.4 H (1.6-8.9) K/mcL BMP 08/03/18 04:50 Sodium 129 L Potassium 4.3 Chloride 94 L Carbon Dioxide 25 BUN 28 H Creatinine 1.10 Glucose 225 H Calcium 8.0 L - ABG Interpretation ABG results: PT/INR, D-dimer PT 12.2 Seconds (9.4-12.1) H 08/01/18 01:56 - Impressions Impressions Abdomen/Pelvis/Transvag US 08/02/18 08:15 IMPRESSION: No significant ascites D/ / Michael Lebron MD / Michael Lebron MD Interpreting Provider: Michael Lebron MD Consult Discharge Plan - Plan Referrals: Reece Kruger MD [Primary Care Provider] - <Ashutosh Jo - Last Filed: 08/03/18 18:12> Hospitalist Progress Note - Encounter Date of Encounter: 08/03/18 - Exam Vitals: Temp Pulse Resp BP Pulse Ox 97.7 F 107 14 102/63 94 08/03/18 14:17 08/03/18 14:17 08/03/18 14:17 08/03/18 14:17 08/03/18 14:17 - Assessment and Plan (1) Liver metastases Current Visit: Yes Status: Suspected (2) UTI (urinary tract infection) Current Visit: Yes Status: Acute (3) Liver mass Current Visit: Yes Status: Acute (4) Hyponatremia Current Visit: Yes Status: Acute (5) Pneumonia Current Visit: Yes Status: Suspected (6) Type 2 diabetes mellitus Current Visit: Yes Status: Chronic (7) DVT prophylaxis Current Visit: Yes Status: Acute (8) Peritoneal carcinomatosis Current Visit: Yes Status: Acute - Time Spent with Patient Total time spent is greater than 50% in coordination of care (as documented) at patient's floor/unit and/or counseling patient: - Is Patient Candidate for Palliative Care Consider palliative consult if one or more criteria present:: Patient/family request a palliative care consult or hospice Internal Medicine: Result - Labs CBC & Chem 7: 08/03/18 04:50 08/03/18 04:50 Labs: Short CBC 08/03/18 Range/Units 04:50 WBC 14.5 H (4.3-11.1) K/mcL Hgb 10.1 L (11.5-15.4) g/dL Hct 31.6 L (35.3-44.9) % Plt Count 191 (140-400) K/mcL Neutrophils # 12.4 H (1.6-8.9) K/mcL BMP 08/03/18 04:50 Sodium 129 L Potassium 4.3 Chloride 94 L Carbon Dioxide 25 BUN 28 H Creatinine 1.10 Glucose 225 H Calcium 8.0 L - ABG Interpretation ABG results: PT/INR, D-dimer PT 12.2 Seconds (9.4-12.1) H 08/01/18 01:56 - Attending Attestation I examined this patient and my medical decision-making was reviewed with the Resident Physician on 08/03/18. I agree with the documented findings, disposition and treatment plan as described except to the extent set forth below. ' Ms Granado is currently admitted for abdominal pain related to liver mass from metastatic cancer. She remains moderate to high risk due to potential for worsening clinical status. Ms Granado is having some pain at this time. No fever or chills. No nausea. Daughter at bedside. To speak with palliative today. Exam Alert comfortable Mucus membranes dry Heart not tachy No wheeze abd distended with some lower abd discomfort No edema I/P 1. Abd pain due to liver mass - pain control 2. Metastatic carcinoma - patient desires hospice 3. pneumonia on IV abx 4. Yeast UTI - fluconazole PO 5. DM - continue SSI. Uncontrolled 6. hyponatremia Further diagnoses and plan as above. <Susana Muñoz N - Last Filed: 08/03/18 11:28> (4) Pneumonia Qualifiers: Pneumonia type: due to unspecified organism Laterality: unspecified laterality Lung location: lower lobe of lung Qualified Code(s): J18.1 - Lobar pneumonia, unspecified organism (5) UTI (urinary tract infection) Qualifiers: Urinary tract infection type: acute cystitis Hematuria presence: without hematuria Qualified Code(s): N30.00 - Acute cystitis without hematuria (6) Type 2 diabetes mellitus Qualifiers: Diabetes mellitus long term care phlebotomist insulin use: without long term care phlebotomist use Diabetes mellitus complication status: without complication Qualified Code(s): E11.9 - Type 2 diabetes mellitus without complications <Ashutosh Jo A - Last Filed: 08/03/18 18:12> (2) UTI (urinary tract infection) Qualifiers: Urinary tract infection type: acute cystitis Hematuria presence: without hematuria Qualified Code(s): N30.00 - Acute cystitis without hematuria (5) Pneumonia Qualifiers: Pneumonia type: due to Pneumococcus Laterality: left Lung location: lower lobe of lung Qualified Code(s): J13 - Pneumonia due to Streptococcus pneumoniae (6) Type 2 diabetes mellitus Qualifiers: Diabetes mellitus long term care phlebotomist insulin use: without nursing home use Diabetes mellitus complication status: with hyperglycemia Qualified Code(s): E11.65 - Type 2 diabetes mellitus with hyperglycemia
[2018-08-03] MEDS ORDERED: Petrolatum, White OINT.PACK TP PRN (08:57)
[2018-08-03] MEDS: *HR* HYDROcodone/Acet 5/325 mg TABLET PO PRN ×2 (10:16→18:41)
--- NOTE | 2018-08-03 11:26 | Palliative - Consult Note ---
Date of Encounter: 08/03/18 Time of Encounter: 11:00 - Assessment and Plan (1) Goals of care, counseling/discussion Current Visit: Yes Status: Acute Assessment and plan: Went to patient's room to discuss goals of care. No family present at bedside. Patient awake, alert, and oriented; however, desires to wait till family arrives to discuss goals of care. Patient reports understanding of liver mass and limited options for treatment. Called patient's regarding meeting, he reports he has to ride with patient's children to hospital. Of note patient's is hard of hearing and has difficulty understanding telephone conversation. Called patient's daughter Anahy and left voicemail, awaiting return phone call. Patient reports she believes her family will be present between 4-430; however, she is unsure. Received return phone call from patient's daughter Laxmi Mcgraw ([phone]). Can be present for goals of care discussion at 330-965 pm. Will need FMLA forms completed. Reports patient's is unable to make medical decisions, in regards to MPOA, as he has dementia and the daughter's make decisions for him. Gave sister Bear Gaytan's telephone number ([phone]). Called and spoke with Bear Gaytan, whom reports she will also be present for meeting at 330 pm. [phone]: Conducted lengthy goals of care assessment with patient and her two daughter (Anahy and Bear), patient's brother (Fabien), Granddaughter, (Jon), and 4 other family members present at bedside. Patient expressed desire for no chemo/radiation/immunotherapy. Interested in going home with [facility]; however, family will be unable to care for her until Wednesday of next week. Discussed potential of GIP versus staying admitted in hospital. Family interested in GIP with attempt to control patient's pain and nausea before discharging. I will make adjustments to medications today and tomorrow Palliative care team will have to evaluate if patient could meet GIP status. CODE STATUS changed to DNRCC. Tanya [facility] Oncology updated on patient's decisions. (2) Abdominal pain Current Visit: Yes Status: Acute Assessment and plan: Patient reports abdominal pain 7-8/10. Had just received Hydrocodone, reports has improved pain some. Will add Oxycodone PRN for severe pain. Qualifiers: Abdominal location: generalized Qualified Code(s): R10.84 - Generalized abdominal pain (3) Liver mass Current Visit: Yes Status: Acute Assessment and plan: Oncology and Gastoenterology follow; recommendations appreciated. (4) Hyponatremia Current Visit: Yes Status: Acute Assessment and plan: Na-129, remains low. (5) Hypokalemia Current Visit: Yes Status: Resolved Assessment and plan: Corrected by Primary team. (6) Pneumonia Current Visit: Yes Status: Acute Assessment and plan: Antibiotics per Primary team. Qualifiers: Pneumonia type: due to unspecified organism Laterality: unspecified laterality Lung location: lower lobe of lung Qualified Code(s): J18.1 - Lobar pneumonia, unspecified organism (7) UTI (urinary tract infection) Current Visit: Yes Status: Acute Assessment and plan: ANtibiotics per primary team. Qualifiers: Urinary tract infection type: acute cystitis Hematuria presence: without hematuria Qualified Code(s): N30.00 - Acute cystitis without hematuria (8) Cirrhosis Current Visit: Yes Status: Acute Qualifiers: Hepatic cirrhosis type: unspecified hepatic cirrhosis Ascites presence: with ascites Qualified Code(s): K74.60 - Unspecified cirrhosis of liver; R18.8 - Other ascites (9) Nausea Current Visit: Yes Status: Acute Assessment and plan: Patient continues to reports nausea. Zofran times 3 and Bentyl times 1. (10) Anxiety Current Visit: Yes Status: Acute Assessment and plan: Patient complains of increased anxiety. Add Ativan PRN. Palliative-CN HPI - Data of Consult Patient: new to practice Consult date: 08/03/18 Requesting Physician: Ashutosh Jo DO Primary Care Provider: Reece Kruger MD - Consult Narrative Palliative Care/Comfort Measures: Palliative care Reason for consult: New widespread metastatic disease, bx pending, family desire hospice info History of present illness: Ms. Granado is a 82 year old female arrived to [place] [facility] on 07/30/18 for increased abdominal pain, times 2 months, with unintentional weight loss, vomiting, and diarrhea. Patient had been evaluated by PCP same day as admission for abdominal pain and concern for abdominal mass with order placed for outpatient CT; however, due to worsening symptoms patient presented to ER. Upon ER evaluation, patient found to have liver mass, hyponatremia, hypokalemia, UTI, and Pneumonia. Chest x-ray showing atypical pneumonia. CT scan depicts liver carcinoma versus hepatocellular carcinoma verses pancreatic cancer of origin; biopsy pending. Oncology consulted for liver mass with pending biopsy and recommended a palliative approach to treatment versus hospice. GI consulted regarding Cirrhosis and liver mass. Palliative care consulted for newly diagnosed wide spread metastatic disease, biopsy pending, and family wishes to discuss hospice care. Patient lying in bed upon arrival for assessment. No family present at bedside. Patient is alert and oriented times 3. Patient reports RLQ, LLQ, and back pain, rated a 7-8/10. Patient has received 1 dose [place] and 0 doses Tylenol in the last 24 hours, describes pain as improved with last dose of [place]. Reports nausea without vomiting and increased anxiety. Patient has received 1 dose Bentyl and 3 doses Zofran in the last 24 hours, reports nausea has improved. CC: Ashutosh Jo, DO - Time Spent with Patient Time: Total time spent is greater than 50% in coordination of care (as documented) at patient's floor/unit and/or counseling patient: Past Med Surg Social Fam HX - Past Medical History Medical history: diabetes, hyperlipidemia, hypertension Additional medical history: multiple sclerosis Psychiatric history: no psych history - Past Surgical History Surgical History: cholecystectomy, hysterectomy Additional surgical history: lump removed from right breast - Social History Smoking Status: Never smoker Alcohol use: none Drug use: none - Family History Mother Living Status: Hx Family GI Disorders: No Father Living Status: Hx Family GI Disorders: No Medications and Allergies Biotin 1,000 mcg PO DAILY 07/31/18 [History] Cholecalciferol (D-3) [Vitamin D] 2 cap PO DAILY 07/31/18 [History] Dicyclomine [Bentyl] 10 mg PO TID PRN 07/31/18 [History] Diltiazem HCl [Cardizem LA] 180 mg PO QAM 07/31/18 [History] Furosemide [Lasix] 10 mg PO QPM 07/31/18 [History] Furosemide [Lasix] 20 mg PO DAILY 07/31/18 [History] Glimepiride [Amaryl] 2 mg PO BID 07/31/18 [History] Glucosamine Sulfate Dipot Chlr [Glucosamine] 1.5 tab PO DAILY 07/31/18 [History] Isosorbide MONOnitrate [Isosorbide Mononitrate ER] 30 mg PO DAILY 07/31/18 [History] Lactobacillus Acidophilus [Acidophilus] 1 each PO DAILY 07/31/18 [History] Lisinopril [Zestril] 20 mg PO DAILY 07/31/18 [History] Metformin HCl [Fortamet] 1,500 mg PO QPM 07/31/18 [History] Metoprolol Tartrate [Lopressor] 50 mg PO BIDWM 07/31/18 [History] Wells-3/Dha/Epa/Fish Oil [Wells 3 500 Softgel] 2 each PO DAILY 07/31/18 [History] Omeprazole [PriLOSEC] 20 mg PO DAILY 07/31/18 [History] Ondansetron ODT [Zofran ODT] 4 mg SL Q6-8H PRN 07/31/18 [History] Oxazepam 30 mg PO TID PRN 07/31/18 [History] Oxybutynin Chloride [Ditropan Xl] 10 mg PO DAILY 07/31/18 [History] Potassium Chloride [Klor-Con 10] 20 meq PO BID 07/31/18 [History] Simvastatin [Zocor] 10 mg PO DAILY 07/31/18 [History] Aspirin [Lo-Dose Aspirin EC] 81 mg PO DAILY 08/01/18 [History] Sertraline [Zoloft] 100 mg PO DAILY 08/01/18 [History] Allergy/AdvReac Type Severity Reaction Status Date / Time No Known Allergies Allergy Verified 08/01/18 10:59 - Constitutional Constitutional ROS PAL: decreased appetite, lethargy, weight loss, no fever(s) - EENT Ears: decreased hearing - Cardiovascular Cardiovascular ROS: no chest pain, no edema, no pedal edema - Respiratory Respiratory: no dyspnea - Gastrointestinal Gastrointestinal: abdominal pain, diarrhea, nausea, vomiting - Musculoskeletal Musculoskeletal ROS IM: back pain - Integumentary ROS Integumentary: dry skin, no jaundice - Neurological Neurological ROS: confusion, weakness - Psychiatric Psychiatric general PM: anxiety, confusion Palliative Care-Exam - Constitutional Vitals: Temp Pulse Resp BP Pulse Ox 97.5 F L 107 16 127/76 96 08/03/18 06:34 08/03/18 06:34 08/03/18 06:34 08/03/18 06:34 08/03/18 06:34 General appearance: Present: cooperative, no acute distress, thin. Absent: febrile - Head Head Exam: Present: atraumatic, normal inspection - Eye Eye exam: Present: EOMI, normal appearance, PERRL, conjuntiva pink. Absent: periorbital swelling, periorbital tenderness - ENT ENT exam: Present: mucous membranes dry, normal external ear exam - Expanded ENT Exam Mouth Exam: Absent: drooling - Neck Neck exam: Present: full ROM, normal inspection. Absent: tenderness - Respiratory Respiratory exam: Present: CTAB. Absent: accessory muscle use, respiratory distress - Cardiovascular Cardiovascular exam: Present: +S1, +S2 - Expanded Cardiovascular Exam Peripheral pulses: 2+: Radial (L), Radial (R), Posterior Tibialis (L), Posterior Tibialis (R), Dorsalis Pedis (L) PM, Dorsalis Pedis (R) PM - GI/Abdominal Exam GI/Abdominal exam: Present: distended, firm, guarding, hyperactive bowel sounds, tenderness. Absent: soft - Expanded GI/Abdominal Exam GI/Abdominal exam: Present: ascites - Rectal Rectal exam: Present: deferred - Extremities Exam Extremities exam: Present: normal capillary refill, normal inspection. Absent: calf tenderness, pedal edema - Back Exam Back exam: Present: full ROM, normal inspection - Neurological Exam Neurological exam: Present: alert, oriented X3, strengths equal and symetr throughout. Absent: altered, facial droop, speech deficit - Expanded Neurological Exam Patient oriented to: Present: person, place, time Coma Scale Eye Opening: Spontaneous Coma Scale Motor Response: Obeys Commands Coma Scale Verbal Response: Oriented Coma Scale Total: 15 - Psychiatric Psychiatric exam: Present: normal affect, normal mood - Skin Skin exam: Present: dry, intact, normal color, warm. Absent: diaphoretic Internal Medicine - CN: Reslt - Labs CBC & Chem 7: 08/03/18 04:50 08/03/18 04:50 Labs: Short CBC 08/03/18 Range/Units 04:50 WBC 14.5 H (4.3-11.1) K/mcL Hgb 10.1 L (11.5-15.4) g/dL Hct 31.6 L (35.3-44.9) % Plt Count 191 (140-400) K/mcL Neutrophils # 12.4 H (1.6-8.9) K/mcL BMP 08/03/18 04:50 Sodium 129 L Potassium 4.3 Chloride 94 L Carbon Dioxide 25 BUN 28 H Creatinine 1.10 Glucose 225 H Calcium 8.0 L - ABG Interpretation ABG results: PT/INR, D-dimer PT 12.2 Seconds (9.4-12.1) H 08/01/18 01:56 - Impressions Impressions Abdomen/Pelvis/Transvag US 08/02/18 08:15 IMPRESSION: No significant ascites D/ / Michael Lebron MD / Michael Lebron MD Interpreting Provider: Michael Lebron MD Consult Discharge Plan - Plan Referrals: Reece Kruger MD [Primary Care Provider] - Palliative Quality Palliative Quality: Screen for Code Status: Yes, Screen for Goals of Care: Yes, Screen for Pain: Yes, If Pain Regimen Started, Initiate Bowel Regimen: NA, Screen for Nausea/Vomitting: Yes Code Status: 07/31/18 02:35 Resuscitation Status: Active [RES] Routine Comment: Resuscitation Status: Full Code
[2018-08-03] MEDS ORDERED: *HR* LORazepam Oral Conc 2 MG/ML SL PRN (16:40)
--- NOTE | 2018-08-03 17:24 | Oncology Inp Progress Note ---
<Tanya Corado L - Last Filed: 08/03/18 18:36> Date of Encounter: 08/03/18 Time of Encounter: 17:00 (1) Liver mass Current Visit: Yes Status: Acute Assessment and plan: Ms. Granado presents with abdominal pain, nausea, vomiting CT imaging showing extensive replacement of her liver by malignancy. In addition, she has ascites, findings concerning for peritoneal carcinomatosis as well as multiple lesions in in the pancreatic body/tail. This represents either a primary liver malignancy were a possible metastatic process involving the liver. Given her age and frailty, our options will be limited. AFP pending CA 19-9 pending 08/01/18: CT guided liver biopsy- pathology pending. Plan: Patient and family understand that patient has evidence of widespread metastatic process, pathology is still pending Treatment would be solely palliative in nature, we have expressed concern as to how well she may tolerate treatments given her overall poor performance status. Patients family also agree that chemotherapy or even immunotherapy/targeted therapy may be poorly tolerated by patient. Palliative care conducted family meeting earlier today and following their discussion they have decided to pursue discharge home with [facility], oncology would agree with thid decision as patient wishes to focus of quality of life and spending time at home with family and friends for remainder of her days At this time, oncology will otherwise plan to sign off, we appreciate assistance of palliative care team with further coordination of care. (2) Nausea Current Visit: Yes Status: Acute Assessment and plan: Presented with nausea with poor oral intake Plan: Well controlled on scheduled Zofran 4 mg IV every 8 hours. Crankshaft Straightener met with patient and daughter this morning. Encouraged Ensure. Encourage bland diet as tolerated Oncology: Subj Interval history: Ms. Granado continues to report intermittent pain. She continues to be drowsy and falls asleep during conversation. She has multiple family members at bedside today. Following family meeting with palliative care team, patient and family have decided to pursue hospice. - Constitutional General appearance: cooperative, no acute distress, thin, no febrile - Head Head exam: Present: atraumatic - Respiratory Respiratory exam: Present: decreased breath sounds. Absent: respiratory distress - Cardiovascular Cardiovascular exam: Present: RRR, +S1, +S2 - GI/Abdominal GI/Abdominal exam: Present: distended, firm, normal bowel sounds, organomegaly, tenderness - Extremities Exam Extremities exam: Present: normal inspection. Absent: calf tenderness - Neurological Exam Neurological exam: Present: alert, no focal deficits, strengths equal and symetr throughout Additional comments: confusion that appears to wax and wane, oriented to person and place - Psychiatric Psychiatric exam: Present: normal affect, normal mood - Skin Skin exam: Present: dry, normal color, warm Oncology: Obj Data - Labs CBC & Chem 7: 08/03/18 04:50 08/03/18 04:50 Consult Discharge Plan - Plan Referrals: Reece Kruger MD [Primary Care Provider] - Inpatient Charges Provider: Dr. Pedro Rothman <Duglas Rothman - Last Filed: 08/03/18 22:01> Date of Encounter: 08/03/18 (1) Liver mass Current Visit: Yes Status: Acute Oncology: Obj Data - Labs CBC & Chem 7: 08/03/18 04:50 08/03/18 04:50 Inpatient Charges Provider: Dr. Pedro Rothman Follow up - Inpatient: [id number] - Attending Attestation I examined this patient and my medical decision-making was reviewed with the Advanced Practice Nurse. I agree with the documented findings, disposition and treatment plan as described except to the extent set forth below. Ms. Granado has been resting comfortably. She has had waxing and waning abdominal pain with bloating. Pain is currently controlled. Minimal nausea. No fever, chill or symptom of infection. No headache, blurred or double vision. Examination reveals her resting comfortably. She does sleep through most for conversation again today. Abdomen is slightly distended. Liver is palpable 5 surgical the right costal margin. Multiple family members at her bedside. We again reviewed her history, imaging and current symptomatology. Her biopsy is still pending. However, her clinical picture is consistent with a metastatic process. This was discussed with the family again today. We discussed goals of care including the patch potential upsizing downside to chemotherapy. The patient's family has also met with palliative care. They elected to proceed with hospice care at home. Hopeful discharge on Wednesday per family wishes. She is DNR comfort care. We did discuss prognosis likely measured a matter of weeks to months. We also discussed expectations with her becoming more tired, decreased appetite likely diminished oral intake. Pain we will also likely be problematic only be monitored and managed by the hospice team. They voiced understanding. We will sign off.
--- NOTE | 2018-08-03 17:32 | Electrocardiograph Report ---
[place] [id number] Test Date: 2018-07-30 Pat Name: Yue Granado Department: [id number] Room: 3A21 Gender: F Animal Sticker: : [id number] Requested By: Fred Ayala Order Number: [id number] Reading MD: Brittany Guadalupe Measurements Intervals [place] Rate: 99 P: 63 [place]: 141 QRS: 13 QRSD: 100 T: -23 QT: 391 QTc: 502 Interpretive Statements Sinus rhythm Probable left atrial enlargement Left ventricular hypertrophy Nonspecific ST abnormalities Electronically Signed On 08-03-2018 17:30:48 EDT by Brittany Guadalupe
[2018-08-03] MEDS: Azithromycin 500 MG in D5% in Water 250 ML IVPB SCH (20:18)
[2018-08-04] MEDS: OXYCODONE Oral CONC 10 MG/0.5 ML ORAL.SYG SL PRN ×2 (00:21→08:36)
[2018-08-04] MEDS: Ondansetron 4 MG/2 ML VIAL IVP SCH ×2 (00:25→08:36)
[2018-08-04] MEDS ORDERED: *HR* Promethazine 25 MG/ML VIAL IVP PRN (04:46)
[2018-08-04] MEDS: *HR* Heparin 5,000 UNIT/ML VIAL SQ SCH (05:21)
[2018-08-04 05:49] LABS: Basophils % 0.3 %; Eosinophils # 0.2 K/mcL (0.0-0.6); Eosinophils % 1.5 %; Hematocrit 29.6 % (35.3-44.9); Hemoglobin 9.5 g/dL (11.5-15.4); Immature Granulocytes % 2.2 % (0-4); Lymphocytes # 0.9 K/mcL (0.6-4.6); Lymphocytes % 7.1 %; Mean Corpuscular HGB Conc 32.1 g/dL (31.6-35.5); Mean Corpuscular Hemoglobin 25.9 pg (28.0-33.3); Mean Corpuscular Volume 80.7 fL (83.0-100.0); Mean Platelet Volume 12.7 fL (9.4-12.4); Monocytes # 0.6 K/mcL (0.0-1.3); Monocytes % 4.8 %; Neutrophils # 10.9 K/mcL (1.6-8.9); Platelet Count 199 K/mcL (140-400); Red Blood Count 3.67 M/mcL (3.82-4.97); Segmented Neutrophils % 84.1 %
[2018-08-04] MEDS: Pantoprazole 40 MG VIAL IVP SCH ×2 (05:50→08:06)
[2018-08-04 06:08] LABS: Albumin 2.4 g/dL (3.5-5.7); Albumin/Globulin Ratio 0.8 (1.1-2.2); Bilirubin,Total 0.8 mg/dL (0.3-1.0); Globulin 3.1 g/dL (2.4-3.5); Potassium 3.9 mEq/L (3.5-5.1); Total Protein 5.5 g/dL (6.4-8.9)
[2018-08-04] MEDS ORDERED: 0.9 % Sodium Chloride 1,000 ML IVC SCH (07:30)
[2018-08-04] MEDS: Insulin LISPRO 300 UNITS/3 ML VIAL SQ SCH (08:22)
[2018-08-04] MEDS: Diltiazem CD (24hr) 180 MG CAPSULE PO SCH (08:23)
[2018-08-04] MEDS: Aspirin Enteric Coated 81 MG Tablet PO SCH (08:23)
[2018-08-04] MEDS: cefTRIAXone 2,000 MG in Water for inj. (sterile) 20 ML 20 ML IVP SCH (08:23)
[2018-08-04] MEDS ORDERED: Fluconazole 100 MG TABLET PO SCH (09:00)
--- NOTE | 2018-08-04 10:16 | Event Note ---
Date of Encounter: 08/04/18 Time of Encounter: 09:30 Conducted full chart review of reports, labs and diagnostics. Conducted bedside assessment of the patient and conducted a detailed conversation with daughters Anahy and Bear. Patient moaning at times, awakens to name called but falls back to sleep. Patient able to report nausea with dry heaving and moaning with c/o abdominal pain. Discussed transitioning patient to [facility] inpatient hospice care this morning for terminal diagnosis of hepatic cancer. Patient with ascites with bilateral full leg pitting edema of 2 -3+. Explained goals of care for comfort only and medication adjustments. Explained that if patient were to stabilize that she could possibly transition home but patient is overall very frail, weak and has continued pain. Family supports transition to comfort care and agree to stop all antibiotics, fluids and nonessential medications. Daughters Bear and Anahy agree to plan. Notified Dr. Jo of plan and she will DC patient to [facility]. Bed management notified.
--- NOTE | 2018-08-04 10:25 | Discharge Summary ---
<Susana Muñoz - Last Filed: 08/04/18 10:19> - NOTES TO OUTPATIENT PROVIDER Notes to Outpatient Provider: Patient discharged to general inpatient hospice Orders not resulted at time of discharge: Pending orders 07/30/18 19:54 Culture,Blood [BC] Stat 07/31/18 09:16 AFP Tumor Marker Non- Routine 07/31/18 17:38 Sputum Culture [Culture,Sputum with Gram Stain] [RM] Routine 08/01/18 01:56 Cancer Antigen-GI (CA 19-9) AM 0400 08/02/18 08:15 Amylase,Peritoneal Fluid [BF] Routine Cell Cnt w Dif, Peritoneal Fl [BF] Routine Glucose,Peritoneal Fluid [BF] Routine LDH,Peritoneal Fluid [BF] Routine Total Protein,Peritoneal Fluid [BF] Routine pH,Peritoneal Fluid [BF] Routine 08/04/18 14:00 BMP [Basic Metabolic Panel] Routine 08/05/18 04:00 CBC [Complete Blood Count] [HEME] AM 0400 CMP [Comprehensive Metabolic Panel] AM 0400 08/06/18 04:00 CBC [Complete Blood Count] [HEME] AM 0400 CMP [Comprehensive Metabolic Panel] AM 0400 08/07/18 04:00 CBC [Complete Blood Count] [HEME] AM 0400 CMP [Comprehensive Metabolic Panel] AM 0400 Date of Encounter: 08/04/18 Time of Encounter: 08:30 - Discharge Diagnosis (1) Liver mass Priority: Primary Status: Acute (2) Hyponatremia Priority: Secondary Status: Acute (3) Hypokalemia Priority: Secondary Status: Resolved (4) Pneumonia Priority: Secondary Status: Suspected Qualifiers: Pneumonia type: due to Pneumococcus Laterality: left Lung location: lower lobe of lung Qualified Code(s): J13 - Pneumonia due to Streptococcus pneumoniae (5) UTI (urinary tract infection) Priority: Secondary Status: Acute Qualifiers: Urinary tract infection type: acute cystitis Hematuria presence: without hematuria Qualified Code(s): N30.00 - Acute cystitis without hematuria (6) Type 2 diabetes mellitus Priority: Secondary Status: Chronic Qualifiers: Diabetes mellitus penitentiary insulin use: without penitentiary use Diabetes mellitus complication status: with hyperglycemia Qualified Code(s): E11.65 - Type 2 diabetes mellitus with hyperglycemia (7) DVT prophylaxis Priority: Secondary Status: Acute Hospital course: Ms. Granado is an 82 year old female who presented to the emergency department for a 2-3 month history of abdominal pain, nausea, and vomiting. Imaging fi ndings in the emergency department were significant for lesions throughout the liver and pancreas raising concern for metastatic disease from multifocal HCC versus pancreatic cancer. Patient underwent biopsy of a hepatic lesion and biopsy results are pending. Given the extent of the disease, significant ascites, and frail disposition of the patient prognosis for recovery was deemed to be poor. Oncology was consulted and determined that any treatments would only be palliative in nature. Palliative care was consulted and had a long discussion with patient's family who ultimately decided to place the patient on comfort care measures and transition to hospice. The following day the patient's clinical status significantly declined as she became more difficult to arouse and weak. Decision was made to transfer the patient to general inpatient hospice for comfort care measures in the setting of terminal liver malignancy. - Time Spent with Patient Total time spent providing and/or coordinating discharge services: - Discharge Medications Prescriptions: No Action RX: Oxazepam 30 mg PO TID PRN PRN Reason: Anxiety Ondansetron ODT [Zofran ODT] 4 mg SL Q6-8H PRN PRN Reason: Nausea Glucosamine Sulfate Dipot Chlr [Glucosamine] 1.5 tab PO DAILY RX: Biotin 1,000 mcg PO DAILY Simvastatin [Zocor] 10 mg PO DAILY Oxybutynin Chloride [Ditropan Xl] 10 mg PO DAILY Omeprazole [PriLOSEC] 20 mg PO DAILY [place]-3/Dha/Epa/Fish Oil [[place] 3 500 Softgel] 2 each PO DAILY Metoprolol Tartrate [Lopressor] 50 mg PO BIDWM Metformin HCl [Fortamet] 1,500 mg PO QPM Potassium Chloride [Klor-Con 10] 20 meq PO BID RX: Lisinopril [Zestril] 20 mg PO DAILY Isosorbide MONOnitrate [Isosorbide Mononitrate ER] 30 mg PO DAILY Glimepiride [Amaryl] 2 mg PO BID Furosemide [Lasix] 10 mg PO QPM Furosemide [Lasix] 20 mg PO DAILY Diltiazem HCl [Cardizem LA] 180 mg PO QAM RX: Cholecalciferol (D-3) [Vitamin D] 2 cap PO DAILY Dicyclomine [Bentyl] 10 mg PO TID PRN PRN Reason: Cramping Lactobacillus Acidophilus [Acidophilus] 1 each PO DAILY Aspirin [Lo-Dose Aspirin EC] 81 mg PO DAILY RX: Sertraline [Zoloft] 100 mg PO DAILY Home Medications: Dicyclomine [Bentyl] 10 mg PO TID PRN 07/31/18 [History] Diltiazem HCl [Cardizem LA] 180 mg PO QAM 07/31/18 [History] Furosemide [Lasix] 10 mg PO QPM 07/31/18 [History] Furosemide [Lasix] 20 mg PO DAILY 07/31/18 [History] Glimepiride [Amaryl] 2 mg PO BID 07/31/18 [History] Glucosamine Sulfate Dipot Chlr [Glucosamine] 1.5 tab PO DAILY 07/31/18 [History] Isosorbide MONOnitrate [Isosorbide Mononitrate ER] 30 mg PO DAILY 07/31/18 [History] Lactobacillus Acidophilus [Acidophilus] 1 each PO DAILY 07/31/18 [History] Metformin HCl [Fortamet] 1,500 mg PO QPM 07/31/18 [History] Metoprolol Tartrate [Lopressor] 50 mg PO BIDWM 07/31/18 [History] [place]-3/Dha/Epa/Fish Oil [[place] 3 500 Softgel] 2 each PO DAILY 07/31/18 [History] Omeprazole [PriLOSEC] 20 mg PO DAILY 07/31/18 [History] Ondansetron ODT [Zofran ODT] 4 mg SL Q6-8H PRN 07/31/18 [History] Oxybutynin Chloride [Ditropan Xl] 10 mg PO DAILY 07/31/18 [History] Potassium Chloride [Klor-Con 10] 20 meq PO BID 07/31/18 [History] RX: Biotin 1,000 mcg PO DAILY 07/31/18 [History] RX: Cholecalciferol (D-3) [Vitamin D] 2 cap PO DAILY 07/31/18 [History] RX: Lisinopril [Zestril] 20 mg PO DAILY 07/31/18 [History] RX: Oxazepam 30 mg PO TID PRN 07/31/18 [History] Simvastatin [Zocor] 10 mg PO DAILY 07/31/18 [History] Aspirin [Lo-Dose Aspirin EC] 81 mg PO DAILY 08/01/18 [History] RX: Sertraline [Zoloft] 100 mg PO DAILY 08/01/18 [History] Allergies/Adverse Reactions: Allergy/AdvReac Type Severity Reaction Status Date / Time No Known Allergies Allergy Verified 08/01/18 10:59 Date of admission: 07/31/18 03:58 Primary care physician: Reece Kruger MD Consults: 07/31/18 02:35 Consult to Oncology Hematology [CONS] Routine Consulting Provider: Duglas Rothman Reason for Consult: suspect pancreatic or liver cancer Call Completed: No 07/31/18 17:35 Consult to Interventional Radiology [CONS] Routine Consulting Provider: Radiology Interventional Cols Reason for Consult: CT guided biopsy of liver Call Completed: Yes 08/02/18 08:16 Consult to Interventional Radiology [CONS] Routine Consulting Provider: Radiology Interventional Cols Reason for Consult: paracentesis Call Completed: No 08/02/18 14:59 Consult to Physical Therapy [CONS] Routine Comment: Evaluate, develop and implement POC Reason for Consult: Deconditioning, increased weakness Does patient have active BEDREST order?: No Is patient medically & hemodynamically stable?: Yes Patient assessed for mobility or mobilized this visit?: No 08/02/18 15:00 Consult to Occupational Therapy [CONS] Routine Comment: Evaluate, develop and implement POC Reason for Consult: Deconditioning, increased weakness Does patient have active BEDREST order?: No Is patient medically & hemodynamically stable?: Yes Patient assessed for mobility or mobilized this visit?: No 08/02/18 17:46 Consult to Palliative Care [CONS] Routine Comment: Consulting Provider: Palliative Care Usha Reason for Consult: new widespread metastatic disease, bx pending, family wis h to discuss hospice---will call in AM Call Completed: No 08/03/18 12:29 Consult to Nutrition [CONS] Routine Comment: Consulting Provider: NUTRITION Reason for Dietary Consult: PO Supplementation Other:: Patient would like alternatives to ensure Discharging clinician: Susana Muñoz Anticipated date of discharge: 08/04/18 - Constitutional Vitals: Temp Pulse Resp BP Pulse Ox 97.8 F 108 14 120/79 97 08/04/18 05:59 08/04/18 05:59 08/04/18 05:59 08/04/18 05:59 08/04/18 05:59 General appearance: Present: cachectic, cooperative, A&O X 3, pleasant, answers questions appropriately Exam: Gen.: Cachectic in appearance, no acute distress HEENT: Pupils are equal and round. EOMI. Head is normocephalic atraumatic. Extremities moist. Neck: No JVD, trachea midline Cardiac: RRR, no murmur, +S1/S2, No BLE edema Pulmonary: CTA bilaterally, no wheezes, rales or rhonchi Abdomen: Slightly distended but soft, tenderness palpating epigastric region and left upper quadrant Skin: warm and dry, no visible lesions. Neuro: No obvious focal neurological deficits Psych: Appropriate mood and behavior, AOx3 - Patient Status Disposition: Hospice - Medical Facility Condition: Critical Overall status at discharge: patient is not back to baseline - Discharge Instructions <Ashutosh Jo - Last Filed: 08/04/18 18:37> Orders not resulted at time of discharge: Pending orders 07/30/18 19:54 Culture,Blood [BC] Stat Date of Encounter: 08/04/18 - Discharge Diagnosis (1) Liver metastases Priority: Secondary Status: Suspected (2) UTI (urinary tract infection) Status: Acute Qualifiers: Urinary tract infection type: acute cystitis Hematuria presence: without hematuria Qualified Code(s): N30.00 - Acute cystitis without hematuria (3) Liver mass Priority: Secondary Status: Acute (4) Hyponatremia Status: Acute (5) Pneumonia Status: Suspected Qualifiers: Pneumonia type: due to Pneumococcus Laterality: left Lung location: lower lobe of lung Qualified Code(s): J13 - Pneumonia due to Streptococcus pneumoniae (6) Type 2 diabetes mellitus Status: Chronic Qualifiers: Diabetes mellitus penitentiary insulin use: without small engine technician use Diabetes mellitus complication status: with hyperglycemia Qualified Code(s): E11.65 - Type 2 diabetes mellitus with hyperglycemia (7) DVT prophylaxis Status: Acute (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 Granado is a 82 year old female - Time Spent with Patient Total time spent providing and/or coordinating discharge services: 28min Date of admission: 07/31/18 03:58 Primary care physician: Reece Kruger MD Consults: 07/31/18 02:35 Consult to Oncology Hematology [CONS] Routine Consulting Provider: Duglas Rothman Reason for Consult: suspect pancreatic or liver cancer Call Completed: No 07/31/18 17:35 Consult to Interventional Radiology [CONS] Routine Consulting Provider: Radiology Interventional Cols Reason for Consult: CT guided biopsy of liver Call Completed: Yes 08/02/18 08:16 Consult to Interventional Radiology [CONS] Routine Consulting Provider: Radiology Interventional Cols Reason for Consult: paracentesis Call Completed: No 08/02/18 14:59 Consult to Physical Therapy [CONS] Routine Comment: Evaluate, develop and implement POC Reason for Consult: Deconditioning, increased weakness Does patient have active BEDREST order?: No Is patient medically & hemodynamically stable?: Yes Patient assessed for mobility or mobilized this visit?: No 08/02/18 15:00 Consult to Occupational Therapy [CONS] Routine Comment: Evaluate, develop and implement POC Reason for Consult: Deconditioning, increased weakness Does patient have active BEDREST order?: No Is patient medically & hemodynamically stable?: Yes Patient assessed for mobility or mobilized this visit?: No 08/02/18 17:46 Consult to Palliative Care [CONS] Routine Comment: Consulting Provider: Palliative Care Usha Reason for Consult: new widespread metastatic disease, bx pending, family wish to discuss hospice---will call in AM Call Completed: No 08/03/18 12:29 Consult to Nutrition [CONS] Routine Comment: Consulting Provider: NUTRITION Reason for Dietary Consult: PO Supplementation Other:: Patient would like alternatives to ensure - Constitutional Vitals: Temp Pulse Resp BP Pulse Ox 97.8 F 121 19 142/77 97 08/04/18 13:19 08/04/18 13:19 08/04/18 13:19 08/04/18 13:19 08/04/18 13:19 - Attending Attestation I examined this patient and my medical decision-making was reviewed with the Resident Physician on 08/04/18. I agree with the documented findings, disposition and treatment plan as described except to the extent set forth below. Ms Granado has been admitted for abdominal pain and found to have metastatic cancer. She has decided on comfort care and is to be discharged to [facility] with Hospice. Exam alert Comfortable Mucus membranes dry Heart not tachy Plan D/C to inpatient hospice.
[2018-08-04 13:20] VITALS: BP 142/77
== END 2018-08-04 12:47 | disposition hospice, inpatient (51) | DRG 435 ==
LOC: EMEROOARM 16:53 → 3ANU 16:53 → SUATTDRO 07-31 03:58 → 2ANU 08-04 12:35
PROVIDERS: ADMIT Family Medicine; ATTEND Internal Medicine
PROC: IRLIVER (2018-08-01 12:00)

== ENCOUNTER 2018-08-04 10:09 | Inpatient (IN) ==
--- NOTE | 2018-08-04 10:29 | Pallative History & Physical ---
Date of Encounter: 08/04/18 Time of Encounter: 10:00 Assessment and Plan (1) Nausea Status: Acute Patient with PRN Zofran. Patient reports nausea. (2) Abdominal pain Status: Acute PRN Oxycodone SL. Patient with abdominal ascites. Qualifiers: Abdominal location: generalized Qualified Code(s): R10.84 - Generalized abdominal pain (3) Anxiety Status: Acute PRN Lorazepam for anxiety (4) Goals of care, counseling/discussion Status: Acute Patient admitted to [facility]. Patient with abdominal pain and nausea. Family at bedside and agrees to plan. Patient admitted to hospice care. DNRCC - Comfort Care (5) Liver mass Status: Acute (6) Peritoneal carcinomatosis Status: Acute Internal Medicine - H&P: HPI Chief complaint: Patient with metastatic hepatic cancer Admitted From: Intrahospital Transfer Plans for Post Hospital Care: Hospice - Home History of present illness: Ms. Granado presented with abdominal pain, nausea, vomiting CT imaging showing extensive replacement of her liver by malignancy. 08/01/18: CT guided liver biopsy- pathology pending. In addition, she has ascites. Palliative care consult placed yesterday and family and patient now desire to keep patient comfortable. Per the Oncology note, patient would likely only have palliative treatment options and given her overall frail state would not likely do well with chemo/radiation. Conducted bedside meeting with daughters and patient. Goals of care are for comfort care approach. Patient has continued to have abdominal pain and persistent nausea. Patient is being transitioned to inpatient hospice care for symptom management of pain and nausea. Terminal condition is metastatic hepatic cancer. Past Med Surg Social Fam HX - Past Medical History Medical history: diabetes, hyperlipidemia, hypertension Additional medical history: multiple sclerosis Psychiatric history: no psych history - Past Surgical History Surgical History: cholecystectomy, hysterectomy Additional surgical history: lump removed from right breast - Social History Smoking Status: Never smoker Alcohol use: none Drug use: none - Family History Father Living Status: Hx Family GI Disorders: No Mother Living Status: Hx Family GI Disorders: No Internal Medicine - H&P: Meds Dicyclomine [Bentyl] 10 mg PO TID PRN 07/31/18 [History] Diltiazem HCl [Cardizem LA] 180 mg PO QAM 07/31/18 [History] Furosemide [Lasix] 10 mg PO QPM 07/31/18 [History] Furosemide [Lasix] 20 mg PO DAILY 07/31/18 [History] Glimepiride [Amaryl] 2 mg PO BID 07/31/18 [History] Glucosamine Sulfate Dipot Chlr [Glucosamine] 1.5 tab PO DAILY 07/31/18 [History] Isosorbide MONOnitrate [Isosorbide Mononitrate ER] 30 mg PO DAILY 07/31/18 [History] Lactobacillus Acidophilus [Acidophilus] 1 each PO DAILY 07/31/18 [History] Metformin HCl [Fortamet] 1,500 mg PO QPM 07/31/18 [History] Metoprolol Tartrate [Lopressor] 50 mg PO BIDWM 07/31/18 [History] [place]-3/Dha/Epa/Fish Oil [[place] 3 500 Softgel] 2 each PO DAILY 07/31/18 [History] Omeprazole [PriLOSEC] 20 mg PO DAILY 07/31/18 [History] Ondansetron ODT [Zofran ODT] 4 mg SL Q6-8H PRN 07/31/18 [History] Oxybutynin Chloride [Ditropan Xl] 10 mg PO DAILY 07/31/18 [History] Potassium Chloride [Klor-Con 10] 20 meq PO BID 07/31/18 [History] RX: Biotin 1,000 mcg PO DAILY 07/31/18 [History] RX: Cholecalciferol (D-3) [Vitamin D] 2 cap PO DAILY 07/31/18 [History] RX: Lisinopril [Zestril] 20 mg PO DAILY 07/31/18 [History] RX: Oxazepam 30 mg PO TID PRN 07/31/18 [History] Simvastatin [Zocor] 10 mg PO DAILY 07/31/18 [History] Aspirin [Lo-Dose Aspirin EC] 81 mg PO DAILY 08/01/18 [History] RX: Sertraline [Zoloft] 100 mg PO DAILY 08/01/18 [History] Allergy/AdvReac Type Severity Reaction Status Date / Time No Known Allergies Allergy Verified 08/01/18 10:59 ROS unobtainable: due to mental status (limited as patient has overall weakness) - Constitutional Constitutional ROS PAL: decreased appetite, fatigue - Cardiovascular Cardiovascular ROS: edema, leg edema, pedal edema - Gastrointestinal Gastrointestinal: nausea, vomiting - Musculoskeletal Musculoskeletal ROS IM: muscle weakness - Neurological Neurological ROS: weakness Palliative Care-Exam - Constitutional General appearance: Present: cooperative, no acute distress - Head Head Exam: Present: atraumatic - Eye Eye exam: Present: PERRL Pupils: Present: PERRL - ENT ENT exam: Present: mucous membranes moist - Expanded ENT Exam Mouth Exam: Present: normal external inspection - Neck Neck exam: Present: full ROM - Respiratory Respiratory exam: Present: CTAB - Expanded Respiratory Exam Location: decreased breath sounds: Left, Right, Lower - Cardiovascular Cardiovascular exam: Present: RRR, +S1, +S2 - Expanded Cardiovascular Exam Peripheral pulses: 1+: Femoral (L) PM, Femoral (R) PM, Posterior Tibialis (L), Posterior Tibialis (R), 2+: Carotid (L) PM, Carotid (R) PM, Radial (L), Radial (R), Dorsalis Pedis (L) PM, Dorsalis Pedis (R) PM - GI/Abdominal Exam GI/Abdominal exam: Present: distended, tenderness - Expanded GI/Abdominal Exam GI/Abdominal exam: Present: ascites - Rectal Rectal exam: Present: deferred - Extremities Exam Extremities exam: Present: pedal edema Additional comments: 2 -3 + pitting - Neurological Exam Neurological exam: Present: altered (opens eyes and attempts to repsond) - Expanded Neurological Exam Coma Scale Eye Opening: To Voice Coma Scale Motor Response: Localizes to Pain Coma Scale Verbal Response: Confused Coma Scale Total: 12 - Psychiatric Psychiatric exam: Present: flat affect Palliative Quality Palliative Quality: Screen for Code Status: Yes, Screen for Goals of Care: Yes, Screen for Pain: Yes, Screen for Nausea/Vomitting: Yes
[2018-08-04] MEDS ORDERED: Ipratropium/Albuterol Neb 3 ML IH PRN (10:30)
[2018-08-04] MEDS ORDERED: Acetaminophen 650 MG RECTAL SUPP RC PRN (10:30)
[2018-08-04] MEDS ORDERED: Bisacodyl 10 MG RECTAL SUPPOSITORY RC PRN (10:30)
[2018-08-04] MEDS ORDERED: Atropine Sulfate 1% 40 DROP/2 ML BOTTLE SL PRN (10:30)
[2018-08-04] MEDS ORDERED: Haloperidol Oral Conc 10 MG/5 ML UDC PO PRN (10:30)
[2018-08-04] MEDS ORDERED: *HR* LORazepam Oral Conc 2 MG/ML SL PRN (10:35)
[2018-08-04] MEDS ORDERED: *HR* Promethazine 25 MG/ML VIAL IVP PRN (10:38)
[2018-08-04] MEDS: OXYCODONE Oral CONC 10 MG/0.5 ML ORAL.SYG SL SCH ×3 (13:49→20:31)
[2018-08-04] MEDS: Ondansetron 4 MG/2 ML VIAL IVP SCH ×2 (13:49→20:31)
[2018-08-04] MEDS ORDERED: Atropine 1% Opth Drops 100 DROP/5 ML BOTTLE SL PRN (14:10)
[2018-08-04] MEDS ORDERED: OXYCODONE Oral CONC 10 MG/0.5 ML ORAL.SYG SL PRN (14:19)
[2018-08-05] MEDS: OXYCODONE Oral CONC 10 MG/0.5 ML ORAL.SYG SL SCH ×7 (00:17→19:59)
[2018-08-05] MEDS: Ondansetron 4 MG/2 ML VIAL IVP SCH ×4 (00:17→19:47)
--- NOTE | 2018-08-05 10:22 | Palliative - Consult Note ---
Date of Encounter: 08/05/18 Time of Encounter: 09:00 - Assessment and Plan (1) Nausea Current Visit: No Status: Acute Assessment and plan: Patient received 2 doses of Zofran overnight. Resting now and denies N/V at present. (2) Abdominal pain Current Visit: No Status: Acute Assessment and plan: Patient with hepatic cancer with mets. Ascites and anasarca to thighs, and feet. Patient facial grimace with light abdominal palpation. Patient with scheduled doses of Oxycodon throughput night. Sleeping comfortable this morning. Will c ontinue scheduled doses for another 24 hrs and reevaluate in AM. Patient had one BTP dose last night at 2200. Family updated on plan and supports maintaining scheduled doses of Oxycodon. Qualifiers: Abdominal location: generalized Qualified Code(s): R10.84 - Generalized abdominal pain (3) Anxiety Current Visit: No Status: Acute Assessment and plan: PRN Lorazepam. No doses required overnight. (4) Goals of care, counseling/discussion Current Visit: Yes Status: Acute Assessment and plan: Kimberley Higginbotham at bedside. She spent the night with the patient and reports that patient received Oxycodone as scheduled for comfort and has now finally rested. [place] catheter inserted overnight with small amount of urine out, clear yellow. Continue scheduled doses of SL Oxycodone for next 24 hrs and assess needs. Continue Oxycodone BTP as needed. Patient is DNRCC - Comfort care and is resting comfortable at present. (5) Liver mass Current Visit: No Status: Acute (6) Peritoneal carcinomatosis Current Visit: No Status: Acute Palliative-CN HPI - Data of Consult Patient: known to practice within the last 3 years Consult date: 08/05/18 Requesting Physician: Rekha Rodriguez MD Primary Care Provider: PCP NONE - Consult Narrative Palliative Care/Comfort Measures: Palliative care Reason for consult: symptom management History of present illness: Ms. Granado is a 82 year old female admitted to inpatient hospice care for terminal diagnosis of hepatic cancer and abdominal pain. Patient kimberley Higginbotham at bedside and reports that patient had a restful night last night. Patient admitted for pain management and nausea. Family updated on patients status and vital signs. Patient resting well and opens eyes to name. Shakes head yes or no to pain. This palliative care consult is for symptom management. CC: Rekha Rodriguez MD - Time Spent with Patient Time: Total time spent is greater than 50% in coordination of care (as documented) at patient's floor/unit and/or counseling patient: Time with patient: 20 minutes Past Med Surg Social Fam HX - Past Medical History Source: old records reviewed, obtained from family, nursing notes reviewed Medical history: diabetes, hyperlipidemia, hypertension, liver disease, malignancy Additional medical history: multiple sclerosis Psychiatric history: no psych history - Past Surgical History Surgical History: cholecystectomy, hysterectomy Additional surgical history: lump removed from right breast - Social History Smoking Status: Never smoker Alcohol use: none Drug use: none - Family History Mother Living Status: Hx Family GI Disorders: No Father Living Status: Hx Family GI Disorders: No Medications and Allergies Biotin 1,000 mcg PO DAILY 07/31/18 [History] Cholecalciferol (D-3) [Vitamin D] 2 cap PO DAILY 07/31/18 [History] Dicyclomine [Bentyl] 10 mg PO TID PRN 07/31/18 [History] Diltiazem HCl [Cardizem LA] 180 mg PO QAM 07/31/18 [History] Furosemide [Lasix] 10 mg PO QPM 07/31/18 [History] Furosemide [Lasix] 20 mg PO DAILY 07/31/18 [History] Glimepiride [Amaryl] 2 mg PO BID 07/31/18 [History] Glucosamine Sulfate Dipot Chlr [Glucosamine] 1.5 tab PO DAILY 07/31/18 [History] Isosorbide MONOnitrate [Isosorbide Mononitrate ER] 30 mg PO DAILY 07/31/18 [H istory] Lactobacillus Acidophilus [Acidophilus] 1 each PO DAILY 07/31/18 [History] Lisinopril [Zestril] 20 mg PO DAILY 07/31/18 [History] Metformin HCl [Fortamet] 1,500 mg PO QPM 07/31/18 [History] Metoprolol Tartrate [Lopressor] 50 mg PO BIDWM 07/31/18 [History] [place]-3/Dha/Epa/Fish Oil [[place] 3 500 Softgel] 2 each PO DAILY 07/31/18 [History] Omeprazole [PriLOSEC] 20 mg PO DAILY 07/31/18 [History] Ondansetron ODT [Zofran ODT] 4 mg SL Q6-8H PRN 07/31/18 [History] Oxazepam 30 mg PO TID PRN 07/31/18 [History] Oxybutynin Chloride [Ditropan Xl] 10 mg PO DAILY 07/31/18 [History] Potassium Chloride [Klor-Con 10] 20 meq PO BID 07/31/18 [History] Simvastatin [Zocor] 10 mg PO DAILY 07/31/18 [History] Aspirin [Lo-Dose Aspirin EC] 81 mg PO DAILY 08/01/18 [History] Sertraline [Zoloft] 100 mg PO DAILY 08/01/18 [History] Allergy/AdvReac Type Severity Reaction Status Date / Time No Known Allergies Allergy Verified 08/01/18 10:59 ROS unobtainable: due to mental status - Constitutional Constitutional ROS PAL: fatigue - EENT Ears: decreased hearing - Cardiovascular Cardiovascular ROS: leg edema, pedal edema - Gastrointestinal Gastrointestinal: nausea, vomiting - Musculoskeletal Musculoskeletal ROS IM: muscle weakness Palliative Care-Exam - Constitutional Vitals: Temp Pulse Resp BP Pulse Ox 97.9 F 128 18 115/62 86 08/05/18 07:04 08/05/18 07:04 08/05/18 07:04 08/05/18 07:04 08/05/18 07:04 General appearance: Present: cooperative, no acute distress - Head Head Exam: Present: atraumatic, normal inspection - Eye Eye exam: Present: PERRL, scleral icterus Pupils: Present: PERRL - Neck Neck exam: Present: normal inspection - Respiratory Respiratory exam: Present: decreased breath sounds Additional comments: Shallow respirations - Expanded Respiratory Exam Location: decreased breath sounds: Left, Right, Lower - Cardiovascular Cardiovascular exam: Present: RRR, +S1, +S2, tachycardia - Expanded Cardiovascular Exam Peripheral pulses: 1+: Femoral (L) PM, Femoral (R) PM, Posterior Tibialis (L), Posterior Tibialis (R), Dorsalis Pedis (L) PM, Dorsalis Pedis (R) PM, 2+: Carotid (L) PM, Carotid (R) PM, Radial (L), Radial (R) - GI/Abdominal Exam GI/Abdominal exam: Present: distended, firm - Expanded GI/Abdominal Exam GI/Abdominal exam: Present: ascites - Rectal Rectal exam: Present: deferred - Catheter Type: Urethral (Norton) Additional comments: small amount yellow urine - Extremities Exam Extremities exam: Present: pedal edema (2 -3+ pitting) - Expanded Upper Extremities Exam General: Present: normal inspection (overall general weakness) - Neurological Exam Neurological exam: Present: altered (opens eyes to name then falls back to sleep) - Expanded Neurological Exam Coma Scale Eye Opening: To Voice Coma Scale Motor Response: Localizes to Pain Coma Scale Verbal Response: Confused Coma Scale Total: 12 Consult Discharge Plan - Plan Referrals: NONE,PCP [Primary Care Provider] - Palliative Quality Palliative Quality: Screen for Code Status: Yes, Screen for Goals of Care: Yes, Screen for Pain: Yes, Screen for Nausea/Vomitting: Yes Code Status: 08/04/18 10:30 Resuscitation Status: Active [RES] Routine Comment: Resuscitation Status: DNR-Comfort Care Palliative Scale - Palliative Performance Scale How ambulatory is this patient?: Totally bed bound What is patient's level of activity and evidence of disease?: Unable to do most activity, Extensive disease How much self-care assistance does patient require?: Total care How much oral intake does the patient have?: Mouth care only What is this patient's level of consciousness?: Full or drowsy with or without confusion Palliative Performance Score: 30 %
[2018-08-05] MEDS: OXYCODONE Oral CONC 10 MG/0.5 ML ORAL.SYG SL PRN (14:45)
[2018-08-06] MEDS: OXYCODONE Oral CONC 10 MG/0.5 ML ORAL.SYG SL SCH ×3 (00:04→07:26)
[2018-08-06] MEDS: Ondansetron 4 MG/2 ML VIAL IVP SCH ×2 (00:05→05:39)
[2018-08-06] MEDS: OXYCODONE Oral CONC 10 MG/0.5 ML ORAL.SYG SL PRN ×2 (02:53→09:38)
[2018-08-06 07:09] VITALS: BP 89/49
[2018-08-06] MEDS ORDERED: Ondansetron 4 MG/2 ML VIAL IVP PRN (08:38)
--- NOTE | 2018-08-06 08:57 | Palliative Progress Note ---
Date of Encounter: 08/06/18 Time of Encounter: 08:30 - Assessment and plan (1) Fever Current Visit: Yes Status: Acute Assessment and plan: Patient with terminal fever of 102.4. Cool towel applied to head for comfort. RC tylenol to be given per nursing and is PRN. Educated family of pathophysiology of fever. Will monitor. (2) Dry eye Current Visit: Yes Status: Acute Assessment and plan: Patient with end of life inability to maintain blinking and eye lubrication. Patient also with hx of dry eye. Will add lacrilube as scheduled for comfort. Eye care given to remove eye debris. (3) Nausea Current Visit: No Status: Acute Assessment and plan: Patient with no noted nausea. Changed Zofran from scheduled to PRN. (4) Abdominal pain Current Visit: Yes Status: Acute Assessment and plan: Scheduled doses of Oxycodone given and used one additional PRN Oxycodone SL. Patient with abdominal ascites and moaning out at times. Facial grimace with abdominal assessment. Patient also with history of back pain. Positioning for comfort and turning every 2 hrs and PRN. Qualifiers: Abdominal location: generalized Qualified Code(s): R10.84 - Generalized abdominal pain (5) Anxiety Current Visit: No Status: Acute Assessment and plan: PRN Lorazepam for anxiety. Patient with fever and moaning. Received dose this AM. Jay increase dose to 1mg PRN. (6) Goals of care, counseling/discussion Current Visit: Yes Status: Acute Assessment and plan: Patient in inpatient hospice care. DNRCC - Comfort Care. Bedside discussion with Anahy, patients oldest daughter. Patient now with temp of 102, 4 and B/P 89/49. Ascites and generalized anasarca. Discussed that prognosis is poor as patients respirations are 8 and shallow with apnea. Explained that transition home is not likely as patient not likely to survive transition. Provided comfort and explained pathophysiology of body shutting down as becomes near. Anahy emotional and verbalized understanding. Patient with early dementia has visited but doesn't stay long. Urine output diminishing as this is day 6 of no po intake. Educated on need for medication adjustments to maintain symptoms. Anahy verbalized understanding and we had a bedside prayer together. (7) Liver mass Current Visit: No Status: Acute (8) Peritoneal carcinomatosis Current Visit: No Status: Acute - Time Spent With Patient Total time spent is greater than 50% in coordination of care (as documented) at patient's floor/unit and/or counseling patient: - Subjective Interval history: Patient unresponsive this morning. Eyes closed and dry. Moans out loud occasionally. Daughter Anahy at bedside. States that patient had restless night with moaning. Vitals now showing Temp 102.4, HR 142, Resp 8 and shallow, B/P 89/49. Sats 82% on RA. Positioned for comfort and oral and eye care given. Assessment completed. - Constitutional Vitals: 102.4, 142, 8, 89.49, sats 82% General appearance: Present: febrile, no acute distress - Head Head exam: Present: atraumatic, normal inspection - Eye Eye exam: Present: PERRL (dry eyes), scleral icterus - ENT ENT exam: Present: mucous membranes moist (oral care provided. ) - Neck Neck exam: Present: tenderness - Respiratory Respiratory exam: Present: decreased breath sounds - Expanded Respiratory Exam Location: decreased breath sounds: Left, Right, Lower, rhonchi: Right, Upper - Cardiovascular Cardiovascular exam: Present: RRR, +S1, +S2, tachycardia - GI/Abdominal GI/Abdominal exam: Present: diminished bowel sounds, distended, tenderness - Expanded Abdominal Exam GI/Abdominal exam: Present: ascites - External exam: Present: normal external exam Additional comments: Norton cath in place. Minimal urine output. Patient with no po intake - Extremities Exam Extremities exam: Present: pedal edema (3+ pedal, leg and thigh) - Neurological Exam Neurological exam: Present: altered (Patient unresponsive to name. Moans to sternal rub) - Psychiatric Psychiatric exam: Present: flat affect - Skin Skin exam: Present: normal color, warm Palliative Quality Palliative Quality: Screen for Code Status: Yes, Screen for Goals of Care: Yes, Screen for Pain: Yes, Screen for Nausea/Vomitting: Yes Code Status: 08/04/18 10:30 Resuscitation Status: Active [RES] Routine Comment: Resuscitation Status: DNR-Comfort Care Palliative Scale - Palliative Performance Scale How ambulatory is this patient?: Totally bed bound What is patient's level of activity and evidence of disease?: Unable to do most activity, Extensive disease How much self-care assistance does patient require?: Total care How much oral intake does the patient have?: Mouth care only What is this patient's level of consciousness?: Full or drowsy with or without confusion Palliative Performance Score: 30 % Consult Discharge Plan - Plan Referrals: NONE,PCP [Primary Care Provider] -
[2018-08-06] MEDS ORDERED: *HR* LORazepam Oral Conc 2 MG/ML SL PRN (09:15)
[2018-08-06] MEDS ORDERED: Lacri-Lube 3.5 GM TUBE BOTH EYES SCH (09:15)
--- NOTE | 2018-08-06 11:44 | Death Note ---
Discharge Sum: Summary - Date and Time Date of admission: 08/04/18 13:14 Date of : 08/06/18 Time of : 11:18 - Summary Details: Patient was admitted to inpatient hospice care for terminal diagnosis of hepatic cancer. Patient was managed for dyspnea, pain and fever as body functions declined patient suffered respiratory arrest and comfortably with her daughter Anahy at the bedside. Family prayer and support given. - Additional Data Confirmation of as documented by pronouncing clinician: no pulse, no respirations, no heart sounds, pupils fixed and dilated Family: at bedside Attending/PCP notified?: Yes ([facility]) Attending physician: Rekha Rodriguez MD Was code activated?: No Autopsy requested?: No cigarette making examiner notified?: No Organ bank notified?: Yes Advance directives: No Hospice patient?: Yes Discharge Sum: Diag - PCOD Probable Cause of : Respiratory arrest - Contributing Factors (1) Fever Temp this AM 102.4. Tylenol and cool cloths provided. (4) Abdominal pain General ascites and anasarca from liver failure (7) Liver mass Patient with metastatic liver cancer. Terminal diagnosis (8) Peritoneal carcinomatosis Patient suffered from metastatic hepatic cancer Discharge Sum: Prov - Provider Primary care physician: PCP NONE Admitting clinician: Rekha Rodriguez Attending physician on admission: Rekha Rodriguez Consults: 08/04/18 10:30 Consult to Palliative Care [CONS] Routine Comment: Consulting Provider: Palliative Care Usha Reason for Consult: symptom management Call Completed: No
== END 2018-08-06 11:18 | disposition expired | DRG 951 ==
LOC: 2ANU 13:14
PROVIDERS: ADMIT Internal Medicine Hospice and Palliative Medicine; ATTEND Internal Medicine Hospice and Palliative Medicine